=== PATIENT | female | born 1935 | race Caucasian/White ===

== ENCOUNTER → 2016-06-27 | Day surgery (SDC) | payer OTHER ==
[~2016-06-27] VITALS: Ht 154.9 cm; Wt 88.9 kg
[~2016-06-27] MED LIST: AMARYL1 MG PO; ANTIBIOTIC; ATIVAN1 MG PO; BACTRIM DS 8001 TA1 PO; CARAFATE1 G1 PO; CIPRO500 MG PO; FISH OIL; FLONASE ALLERG9.9 ML NAS; LEVAQUIN750 M1 PO; LORAZEPAM1 MG PO; MACROBID100 M1 PO; MEDROL DOSEPAK4 MG PO; METFORMIN500 MG PO; MUCINEX ER600 MG PO; OMEPRAZOLE DR20 M1 PO; PAXIL PO; PAXIL20 MG PO; PAXIL30 M2 PO; PRILOSEC20 M2 PO; PROBIOTIC DIGE1 EACH PO; PROBIOTICS PO; PYRIDIUM200 MG PO; RANITIDINE 7575 MG; RESTORIL30 M1 PO; ROBITUSSIN AC 110 ML PO; TEMAZEPAM30 MG PO; TRADJENTA5 M1 PO; VIBRAMYCIN100 MG PO; VITAMIN D5000 I3 PO; ZOFRAN ODT4 MG SL; [UNRECOGNIZED DRUG - OTHER]
--- NOTE | ~2016-06-27 | O ---
[place], [place] OPERATIVE NOTE NAME: DYLAN TOUSSAINT UNIT #: [id number] ROOM: DOCTOR: ANGELICA ZAMORA MD BIRTHDATE: [birth year] DOS: 06/27/2016 An 80-year-old patient who was presented with chief complaint of urgency and sensation of loss of control of stool and some blood in stool. ALLERGIES: TORADOL and TETANUS SHOT. FAMILY HISTORY: Noncontributory. PAST SURGICAL HISTORY: Segmental colon resection, cholecystectomy, cardiac stents. PAST MEDICAL HISTORY: Diabetes mellitus, gastritis, anxiety and suspected cirrhosis. SOCIAL HISTORY: Nonsmoker, nonalcohol consumer. PROCEDURE: Today's procedure part of investigation is colonoscopy plus polypectomy x2 from sigmoid colon plus biopsy of rectal mass. PREMEDICATION: Versed and Diprivan. SCOPE: Olympus folding colonoscope 10L video. REPORT: After putting the patient in left lateral position and application of lubricant to rectal pouch and digital examination, scope was introduced. Thereafter, under direct visualization, I advanced through the length of colon without difficulty. Evidence of segmental colon resection was identified; however, scope was withdrawn back 2 sigmoid colon polypoid lesion sessile in character with piecemeal polypectomy was removed, and there is another large infiltrated rectal mass which appears to be an overgrown tubulovillous adenoma to this polyp with deep infiltration and greater than 3 cm in its diameters was noticed. Multiple biopsies after photographic series obtained. This was located 5 cm above dentate line. The patient extubated, tolerated procedure well. IMPRESSION: Large rectal mass at 5 cm away from dentate line, status post biopsy. This requires to be surgically addressed after the pathology is available. Sessile polypoid lesion in sigmoid colon, status post 2 piecemeal polypectomy. PLAN AND DISCUSSION: Awaiting biopsy of rectal pouch polypoid mass inevitably this requires surgical management. I have to talk to the patient after the data and pathology is available and make appropriate arrangements. Etiology of rectal incontinence and blood in stool is all explained based on above findings. [place], [place] OPERATIVE NOTE NAME: DYLAN TOUSSAINT UNIT #: [id number] ROOM: DOCTOR: ANGELICA ZAMORA MD BIRTHDATE: [birth year] ANGELICA ZAMORA MD CM:MURPHYORD:OPERATIVE NOTE [id number] ANGELICA ZAMORA MD 06/27/16916 interface
[2016-06-27 07:33] VITALS: BP 184/80
[2016-06-27 08:45] VITALS: BP 161/58
[2016-06-27 09:00] VITALS: BP 156/57
[2016-06-27 09:15] VITALS: BP 150/66
== END | disposition home or self-care (01) ==
LOC: SDC 06-21 08:45
DX: D12.5 Benign neoplasm of sigmoid colon (principal); D37.5 Neoplasm of uncertain behavior of rectum; E11.9 Type 2 diabetes mellitus without complications; F41.9 Anxiety disorder, unspecified; I10 Essential (primary) hypertension; K21.9 Gastro-esophageal reflux disease without esophagitis; E78.00 Pure hypercholesterolemia, unspecified; Z90.49 Acquired absence of other specified parts of digestive tract; Z95.818 Presence of other cardiac implants and grafts; Z82.3 Family history of stroke; Z82.49 Family history of ischemic heart disease and other diseases of the circulatory system

== ENCOUNTER 2016-07-05 20:21 | Emergency (ER) | payer OTHER ==
[~2016-07-05] VITALS: Ht 152.4 cm; Wt 85.7 kg
[2016-07-05 20:27] VITALS: BP 166/58
[2016-07-05] MEDS ORDERED: DIFLUCAN150 MG PO (20:45)
[2016-07-05] MEDS ORDERED: BACTRIM DS 8001 TA1 PO (20:45)
[2016-07-05] MEDS ORDERED: LOTRISONE 0.05%15 GM T (20:45)
[2016-07-05] MEDS ORDERED: CLINDAMYCIN HC300 MG PO (20:45)
== END 2016-07-05 20:44 | disposition home or self-care (01) ==
LOC: ED 20:21
DX: B37.2 Candidiasis of skin and nail (principal); L03.90 Cellulitis, unspecified; Z95.5 Presence of coronary angioplasty implant and graft; Z90.49 Acquired absence of other specified parts of digestive tract; Z88.6 Allergy status to analgesic agent; Z88.7 Allergy status to serum and vaccine; I25.10 Atherosclerotic heart disease of native coronary artery without angina pectoris; F41.9 Anxiety disorder, unspecified; K21.9 Gastro-esophageal reflux disease without esophagitis; E11.69 Type 2 diabetes mellitus with other specified complication

== ENCOUNTER → 2016-09-07 | Outpatient (CLI) | payer OTHER ==
[~2016-09-07] MED LIST changes: +CLINDAMYCIN HC300 MG PO; +DIFLUCAN150 MG PO; +LOTRISONE 0.05%15 GM T
[2016-09-07 17:31] LABS: POTASSIUM 4.2 mmol/L (3.5-5.1)
== END | disposition home or self-care (01) ==
LOC: LAB 16:34
PROVIDERS: Family Medicine
DX: R79.9 Abnormal finding of blood chemistry, unspecified (principal)

== ENCOUNTER 2016-12-04 01:57 | Inpatient (IN) | payer OTHER ==
[2016-12-04] VITALS (11 sets, daily range): BP systolic 90–161; BP diastolic 44–116
[~2016-12-04] VITALS: Ht 152.4 cm; Wt 92.2 kg
--- NOTE | 2016-12-04 02:42 | NUR ---
PT IN XRAY
--- NOTE | 2016-12-04 02:50 | NUR ---
PT BACK FROM XRAY
[2016-12-04 02:54] LABS: BASO % 0.3 % (0.0-1.0); EOS # 0.2 10*3/uL (0.0-0.4); EOS % 1.4 % (1.0-4.0); HEMATOCRIT 47.6 % (37.0-47.0); HEMOGLOBIN 15.9 g/dl (12.0-16.0); LYMPH # 3.6 10*3/uL (1.3-4.4); LYMPH % 31.2 % (27.0-41.0); MEAN CORPUSCULAR HGB 30.4 pg (27.0-31.0); MEAN CORPUSCULAR HGB CONC 33.4 g/dl (33.0-37.0); MEAN PLATELET VOLUME 10.5 fl (9.6-12.3); MONO # 0.5 10*3/uL (0.1-1.0); MONO % 4.6 % (3.0-9.0); NEUT # 7.1 10*3/uL (2.3-7.9); NEUT % 62.2 % (47.0-73.0); PLATELET COUNT AUTOMATED 256 10*3/uL (130-400); RED BLOOD COUNT 5.23 10*6/uL (4.10-5.10); RED CELL DISTRI WIDTH 13.2 % (0-14.5); WHITE BLOOD COUNT 11.5 10*3/uL (4.8-10.8)
--- NOTE | 2016-12-04 03:06 | NUR ---
WHILE AT PT BEDSIDE WITH DR GARCIA, LAB REPORTED CRITICAL LACTIC ACID OF 4.4, DR GARCIA NOTIFIED IMMEDIATLY
[2016-12-04 03:10] LABS: ALBUMIN 3.5 gm/dl (3.1-4.5); CREATININE 1.44 mg/dL (0.55-1.02); MAGNESIUM 1.5 mg/dL (1.5-2.1); POTASSIUM 3.9 mmol/L (3.5-5.1); TOTAL PROTEIN 8.9 gm/dL (6.4-8.2)
--- NOTE | 2016-12-04 03:14 | NUR ---
LUNGS CLEAR AND DIMINISHED IN LOWER LOBES, PULSE OX FROM 92% ROOM AIR TO 94% ON 2LPM VIA NC
[2016-12-04 04:59] LABS: BILIRUBIN NEGATIVE (NEGATIVE); BLOOD TRACE-LYSED (NEGATIVE); CLARITY CLEAR (CLEAR); COLOR YELLOW (YELLOW); GLUCOSE 3+ (NEGATIVE); KETONE NEGATIVE (NEGATIVE); LEUKO ESTERASE NEGATIVE (NEGATIVE); NITRITE NEGATIVE (NEGATIVE); SPECIFIC GRAVITY <= 1.005 (1.005-1.030); UROBILINOGEN 0.2 E.U./dl (0.2-1.0)
[2016-12-04 05:06] LABS: WBC 0-2 wbc/hpf (0-5)
--- NOTE | 2016-12-04 05:30 | NUR ---
REPORT RECEIVED FROM WEB PRESS OPERATOR HELPER OFFSETFELICIA CHANG AT THIS TIME.
--- NOTE | 2016-12-04 05:48 | NUR ---
A 80, admitted to 5E, under the services of LAURA Broussard DO with a diagnosis of INFECTIOUS DIARRHEA, ACUTE HYPERGLYCEMIA, SEPSIS. Chief complaint is VOMITING. Patient arrived via stretcher from ER. Monitor applied. Initial assessment completed. Vital signs taken and recorded. LAURA BROUSSARD DO notified of admission to the unit. Orders received. See assessment for past medical history, medications and allergies. Patient and/or family oriented to unit. [facility] visitation policy reviewed. Clothing/patient valuable form completed. JO MIR
--- NOTE | 2016-12-04 08:23 | NUR ---
DR ELIZABETH ROUNDED AND ORDERS RECIEVED.
--- NOTE | 2016-12-04 08:35 | NUR ---
NOTIFIED DR MACHADO OF CRITICAL LACTIC ACID OF 3.2.
--- NOTE | 2016-12-04 09:00 | NUR ---
Camera Engineer in to talk to patient. Patient states lives at home with daughter. There are few steps in the home. Physician: marylou dee Pharmacy: [facility] health services: had [facility] Patient's level of ADLs: MINIMAL ASSIST Patient has working utilities: all working DME: home oxygen, portable tank and nebulizer from [facility] Follow-up physician's appointment after d/c: will be made by hospitalist nurse director upon discharge Does patient want to access PORTAL?: no Discharge plan discussed with patient, patient lives at home with her daughter, she states she gets around fine most of the time, she has home oxygen and a portable tank, nebulizer, patient had [facility], but they have discontinued their services, discussed with her a discharge plan and she stated she would be returning home, discussed with her VNA and she refused any at this time, case management will follow. PRIYA CHEN
[2016-12-04] MEDS ORDERED: GLIMEPIRIDE4 M1 PO (12:24)
--- NOTE | 2016-12-04 23:28 | NUR ---
MEDICATED WITH PRN RESTORIL PER ORDER AND REQUEST.
[2016-12-05] VITALS: BP 143/39
[2016-12-05 06:55] LABS: BASO # 0.1 10*3/uL (0.0-0.1); BASO % 0.6 % (0.0-1.0); EOS # 0.5 10*3/uL (0.0-0.4); HEMATOCRIT 43.1 % (37.0-47.0); LYMPH # 3.7 10*3/uL (1.3-4.4); LYMPH % 43.2 % (27.0-41.0); MEAN CORPUSCULAR HGB 31.2 pg (27.0-31.0); MEAN CORPUSCULAR HGB CONC 32.5 g/dl (33.0-37.0); MEAN PLATELET VOLUME 10.9 fl (9.6-12.3); MONO # 0.4 10*3/uL (0.1-1.0); MONO % 5.2 % (3.0-9.0); NEUT # 3.8 10*3/uL (2.3-7.9); NEUT % 44.8 % (47.0-73.0); PLATELET COUNT AUTOMATED 216 10*3/uL (130-400); RED BLOOD COUNT 4.49 10*6/uL (4.10-5.10); RED CELL DISTRI WIDTH 13.5 % (0-14.5); WHITE BLOOD COUNT 8.5 10*3/uL (4.8-10.8)
[2016-12-05 07:07] LABS: ALBUMIN 3.2 gm/dl (3.1-4.5); ALKALINE PHOSPHATASE 72 U/L (45-117); BUN 9 mg/dl (7-24); CHLORIDE 107 mmol/L (98-107); CHOLESTEROL 235 mg/dL (<200); CREATININE 0.93 mg/dL (0.55-1.02); HDL CHOLESTEROL 39 mg/dl (40-60); LDL CHOLESTEROL 150 mg/dL (9-159); MAGNESIUM 1.6 mg/dL (1.5-2.1); PHOSPHOROUS 2.6 mg/dL (2.5-4.9); POTASSIUM 3.8 mmol/L (3.5-5.1); SGOT/AST 27 IU/L (3-35); SGPT/ALT 26 U/L (12-78); SODIUM 139 mmol/L (136-145); TOTAL PROTEIN 7.5 gm/dL (6.4-8.2); TRIGLYCERIDES 229 mg/dl (<150); VLDL CHOLESTEROL 46 mg/dL (6-40)
[2016-12-05 07:11] LABS: ACT PARTIAL THROMBO TIME 26.6 SECONDS (20.8-31.5)
[2016-12-05 07:13] LABS: VITAMIN D, 25-HYDROXY 34.1 ng/mL (30-100)
[2016-12-05 08:00] VITALS: BP 146/80
--- NOTE | 2016-12-05 08:16 | NUR ---
PT STATES THAT HER N/V/D HAS SLOWED SINCE ADMISSION
--- NOTE | 2016-12-05 08:16 | NUR ---
PT RESTING IN BED, NO DISTRESS NOTED. NO VOICED C/O, WILL MONITOR
--- NOTE | 2016-12-05 09:37 | NUR ---
case management visits with patient, again discussed with her VNA, she stated she had this service prior and didn't want them again, her daughter lives with her and would help with whatever she needs
[2016-12-05 12:00] VITALS: BP 132/78
[2016-12-05 16:00] VITALS: BP 129/59
--- NOTE | 2016-12-05 17:13 | NUR ---
PT RESTING IN BED, NO DISTRESS NOTED. NO VOICED C/O. FAMILY AT BEDSIDE
[2016-12-05 20:00] VITALS: BP 153/50
[2016-12-06] VITALS: BP 162/74
[2016-12-06 06:20] LABS: BASO % 0.5 % (0.0-1.0); EOS # 0.5 10*3/uL (0.0-0.4); EOS % 5.5 % (1.0-4.0); HEMATOCRIT 42.4 % (37.0-47.0); HEMOGLOBIN 13.6 g/dl (12.0-16.0); LYMPH # 3.5 10*3/uL (1.3-4.4); LYMPH % 40.8 % (27.0-41.0); MEAN CELL VOLUME 93.6 fl (81.0-99.0); MEAN CORPUSCULAR HGB CONC 32.1 g/dl (33.0-37.0); MEAN PLATELET VOLUME 10.4 fl (9.6-12.3); MONO # 0.5 10*3/uL (0.1-1.0); MONO % 5.4 % (3.0-9.0); NEUT # 4.1 10*3/uL (2.3-7.9); NEUT % 47.6 % (47.0-73.0); PLATELET COUNT AUTOMATED 196 10*3/uL (130-400); RED BLOOD COUNT 4.53 10*6/uL (4.10-5.10); RED CELL DISTRI WIDTH 13.3 % (0-14.5); WHITE BLOOD COUNT 8.5 10*3/uL (4.8-10.8)
[2016-12-06 06:54] LABS: BUN 8 mg/dl (7-24); CHLORIDE 106 mmol/L (98-107); CREATININE 0.93 mg/dL (0.55-1.02); POTASSIUM 3.8 mmol/L (3.5-5.1); SODIUM 140 mmol/L (136-145)
[2016-12-06 08:00] VITALS: BP 158/51
--- NOTE | 2016-12-06 09:00 | NUR ---
case management visits with patient, patient states she will be going home when able and denies any home needs, patient has refused VNA
[2016-12-06] MEDS ORDERED: SIMVASTATIN20 MG PO (12:32)
--- NOTE | 2016-12-06 14:10 | NUR ---
Nutritional Support Services Note: Pt is eating 100% of all meals. Regular diet as ordered. BS high at 211. Meds include insulin, dx of acute hyperglcemia. Pt wants to remain on a regular diet. States she will not order any sweets. Ht.5' Wt.203#. IBW 90-110. Lives with daughter, no problems noted. Encouraged better compliance to diet and avoidance of fat sec. to [facility] cholesterol and triglyceride level. Will follow as needed. Swati Shook
--- NOTE | 2016-12-06 14:25 | NUR ---
PT REQUESTED AND GIVEN ZOFRAN FOR C/O NAUSEA. WILL MONITOR
--- NOTE | 2016-12-06 14:57 | NUR ---
Discharge instructions reviewed with patient/family. Patient receptive and verbalizes understanding. Follow-up care arranged. Written instructions given to patient/family. KATHARINE MEJIA
--- NOTE | 2016-12-06 14:57 | NUR ---
YOLY EFFECTIVE, WILL MONITOR
== END 2016-12-06 14:57 | disposition home or self-care (01) | DRG 871 ==
LOC: ED 01:57 → EDHOLD 05:02 → 5E 05:02
PROVIDERS: Emergency Medicine Emergency Medical Services; Hospitalist; Internal Medicine; ADMIT Internal Medicine
DX: A41.9 Sepsis, unspecified organism (principal); N17.0 Acute kidney failure with tubular necrosis; E87.2 Acidosis; E87.1 Hypo-osmolality and hyponatremia; J98.11 Atelectasis; K52.9 Noninfective gastroenteritis and colitis, unspecified; E11.65 Type 2 diabetes mellitus with hyperglycemia; E53.8 Deficiency of other specified B group vitamins; I25.10 Atherosclerotic heart disease of native coronary artery without angina pectoris; R65.20 Severe sepsis without septic shock; K21.9 Gastro-esophageal reflux disease without esophagitis; F41.1 Generalized anxiety disorder; E66.9 Obesity, unspecified; G47.00 Insomnia, unspecified; E55.9 Vitamin D deficiency, unspecified; E78.2 Mixed hyperlipidemia; Z79.4 Long term (current) use of insulin; Z95.5 Presence of coronary angioplasty implant and graft; Z90.49 Acquired absence of other specified parts of digestive tract; Z88.8 Allergy status to other drugs, medicaments and biological substances; Z88.7 Allergy status to serum and vaccine; Z79.899 Other long term (current) drug therapy; Z82.49 Family history of ischemic heart disease and other diseases of the circulatory system; Z82.3 Family history of stroke; Z68.39 Body mass index [BMI] 39.0-39.9, adult

== ENCOUNTER → 2016-12-21 | Outpatient (CLI) | payer OTHER ==
[~2016-12-21] MED LIST changes: +GLIMEPIRIDE4 M1 PO; +SIMVASTATIN20 MG PO
[2016-12-21 16:23] LABS: BASO # 0.1 10*3/uL (0.0-0.1); BASO % 0.6 % (0.0-1.0); EOS # 0.4 10*3/uL (0.0-0.4); EOS % 4.2 % (1.0-4.0); HEMATOCRIT 44.1 % (37.0-47.0); HEMOGLOBIN 14.6 g/dl (12.0-16.0); LYMPH # 3.5 10*3/uL (1.3-4.4); LYMPH % 36.4 % (27.0-41.0); MEAN CELL VOLUME 92.5 fl (81.0-99.0); MEAN CORPUSCULAR HGB 30.6 pg (27.0-31.0); MEAN CORPUSCULAR HGB CONC 33.1 g/dl (33.0-37.0); MEAN PLATELET VOLUME 10.3 fl (9.6-12.3); MONO # 0.4 10*3/uL (0.1-1.0); MONO % 4.4 % (3.0-9.0); NEUT # 5.2 10*3/uL (2.3-7.9); NEUT % 54.2 % (47.0-73.0); PLATELET COUNT AUTOMATED 228 10*3/uL (130-400); RED BLOOD COUNT 4.77 10*6/uL (4.10-5.10); RED CELL DISTRI WIDTH 13.5 % (0-14.5); WHITE BLOOD COUNT 9.5 10*3/uL (4.8-10.8)
[2016-12-21 16:38] LABS: ALBUMIN 3.4 gm/dl (3.1-4.5); ALKALINE PHOSPHATASE 80 U/L (45-117); BILIRUBIN, DIRECT < 0.1 mg/dL (0.0-0.2); BUN 10 mg/dl (7-24); CHLORIDE 101 mmol/L (98-107); CREATININE 0.97 mg/dL (0.55-1.02); SGOT/AST 63 IU/L (3-35); SGPT/ALT 40 U/L (12-78); SODIUM 136 mmol/L (136-145); TOTAL PROTEIN 7.8 gm/dL (6.4-8.2)
== END | disposition home or self-care (01) ==
LOC: LAB 16:03
PROVIDERS: Family Medicine
DX: E11.9 Type 2 diabetes mellitus without complications (principal); R79.89 Other specified abnormal findings of blood chemistry; N28.9 Disorder of kidney and ureter, unspecified

== ENCOUNTER 2017-01-26 23:50 | Emergency (ER) | payer OTHER ==
[~2017-01-26] VITALS: Ht 149.8 cm; Wt 88.9 kg
[2017-01-26 23:59] VITALS: BP 151/54
[2017-01-27 00:27] LABS: BASO % 0.4 % (0.0-1.0); EOS # 0.4 10*3/uL (0.0-0.4); EOS % 3.7 % (1.0-4.0); HEMATOCRIT 42.1 % (37.0-47.0); HEMOGLOBIN 14.1 g/dl (12.0-16.0); LYMPH # 3.6 10*3/uL (1.3-4.4); LYMPH % 38.8 % (27.0-41.0); MEAN CELL VOLUME 90.9 fl (81.0-99.0); MEAN CORPUSCULAR HGB 30.5 pg (27.0-31.0); MEAN CORPUSCULAR HGB CONC 33.5 g/dl (33.0-37.0); MEAN PLATELET VOLUME 9.8 fl (9.6-12.3); MONO # 0.5 10*3/uL (0.1-1.0); MONO % 5.2 % (3.0-9.0); NEUT # 4.9 10*3/uL (2.3-7.9); NEUT % 51.8 % (47.0-73.0); PLATELET COUNT AUTOMATED 247 10*3/uL (130-400); RED BLOOD COUNT 4.63 10*6/uL (4.10-5.10); RED CELL DISTRI WIDTH 13.6 % (0-14.5); WHITE BLOOD COUNT 9.4 10*3/uL (4.8-10.8)
[2017-01-27 00:42] LABS: ALBUMIN 3.3 gm/dl (3.1-4.5); ALKALINE PHOSPHATASE 86 U/L (45-117); BUN 10 mg/dl (7-24); CHLORIDE 101 mmol/L (98-107); CREATININE 0.98 mg/dL (0.55-1.02); POTASSIUM 3.7 mmol/L (3.5-5.1); SGOT/AST 39 IU/L (3-35); SGPT/ALT 34 U/L (12-78); SODIUM 136 mmol/L (136-145); TOTAL PROTEIN 7.9 gm/dL (6.4-8.2)
== END 2017-01-27 01:20 | disposition home or self-care (01) ==
LOC: ED 23:50
PROVIDERS: Physician Assistant
DX: L30.9 Dermatitis, unspecified (principal); Z88.8 Allergy status to other drugs, medicaments and biological substances; Z79.899 Other long term (current) drug therapy; Z90.49 Acquired absence of other specified parts of digestive tract

== ENCOUNTER 2017-02-04 17:53 | Emergency (ER) | payer OTHER ==
[~2017-02-04] VITALS: Ht 149.8 cm; Wt 86.2 kg
[2017-02-04 18:03] VITALS: BP 150/90
[2017-02-04 18:33] LABS: BASO # 0.1 10*3/uL (0.0-0.1); BASO % 0.5 % (0.0-1.0); EOS # 0.3 10*3/uL (0.0-0.4); HEMATOCRIT 42.3 % (37.0-47.0); HEMOGLOBIN 14.2 g/dl (12.0-16.0); LYMPH # 4.8 10*3/uL (1.3-4.4); LYMPH % 45.7 % (27.0-41.0); MEAN CELL VOLUME 90.8 fl (81.0-99.0); MEAN CORPUSCULAR HGB 30.5 pg (27.0-31.0); MEAN CORPUSCULAR HGB CONC 33.6 g/dl (33.0-37.0); MEAN PLATELET VOLUME 9.9 fl (9.6-12.3); MONO # 0.5 10*3/uL (0.1-1.0); NEUT # 4.8 10*3/uL (2.3-7.9); NEUT % 45.6 % (47.0-73.0); PLATELET COUNT AUTOMATED 223 10*3/uL (130-400); RED BLOOD COUNT 4.66 10*6/uL (4.10-5.10); RED CELL DISTRI WIDTH 13.6 % (0-14.5); WHITE BLOOD COUNT 10.5 10*3/uL (4.8-10.8)
[2017-02-04 18:51] LABS: ALBUMIN 3.3 gm/dl (3.1-4.5); ALKALINE PHOSPHATASE 81 U/L (45-117); BUN 14 mg/dl (7-24); CHLORIDE 101 mmol/L (98-107); CREATININE 0.87 mg/dL (0.55-1.02); POTASSIUM 4.2 mmol/L (3.5-5.1); SGOT/AST 17 IU/L (3-35); SGPT/ALT 24 U/L (12-78); SODIUM 136 mmol/L (136-145)
[2017-02-04 18:57] LABS: ACT PARTIAL THROMBO TIME 27.3 SECONDS (20.8-31.5)
[2017-02-04] MEDS ORDERED: DELTASONE20 M1 PO (19:17)
== END 2017-02-04 19:26 | disposition home or self-care (01) ==
LOC: ED 17:53
PROVIDERS: Emergency Medicine
DX: D69.2 Other nonthrombocytopenic purpura (principal); I77.6 Arteritis, unspecified; Z90.49 Acquired absence of other specified parts of digestive tract; Z95.5 Presence of coronary angioplasty implant and graft; Z98.890 Other specified postprocedural states; Z79.899 Other long term (current) drug therapy; Z88.6 Allergy status to analgesic agent; Z88.7 Allergy status to serum and vaccine

== ENCOUNTER 2017-03-29 15:34 | Inpatient (IN) | payer OTHER ==
[~2017-03-29] VITALS: Ht 152.4 cm; Wt 91.2 kg
[~2017-03-29 15:34] MED LIST changes: +DELTASONE20 M1 PO
[2017-03-29 15:38] VITALS: BP 178/150
[2017-03-29 15:50] VITALS: BP 126/62
[2017-03-29 16:04] LABS: BASO # 0.1 10*3/uL (0.0-0.1); BASO % 0.4 % (0.0-1.0); EOS # 0.3 10*3/uL (0.0-0.4); EOS % 2.5 % (1.0-4.0); HEMOGLOBIN 14.4 g/dl (12.0-16.0); LYMPH # 3.4 10*3/uL (1.3-4.4); LYMPH % 30.4 % (27.0-41.0); MEAN CELL VOLUME 91.9 fl (81.0-99.0); MEAN CORPUSCULAR HGB 30.8 pg (27.0-31.0); MEAN CORPUSCULAR HGB CONC 33.5 g/dl (33.0-37.0); MEAN PLATELET VOLUME 10.2 fl (9.6-12.3); MONO # 0.5 10*3/uL (0.1-1.0); MONO % 4.1 % (3.0-9.0); NEUT % 62.3 % (47.0-73.0); PLATELET COUNT AUTOMATED 231 10*3/uL (130-400); RED BLOOD COUNT 4.68 10*6/uL (4.10-5.10); RED CELL DISTRI WIDTH 13.2 % (0-14.5); WHITE BLOOD COUNT 11.2 10*3/uL (4.8-10.8)
[2017-03-29 16:19] LABS: ALBUMIN 3.1 gm/dl (3.1-4.5); CREATININE 1.26 mg/dL (0.55-1.02); POTASSIUM 3.9 mmol/L (3.5-5.1); TOTAL PROTEIN 7.6 gm/dL (6.4-8.2)
[2017-03-29 16:23] LABS: BILIRUBIN NEGATIVE (NEGATIVE); BLOOD 3+ (NEGATIVE); CLARITY CLOUDY (CLEAR); COLOR YELLOW (YELLOW); GLUCOSE 3+ (NEGATIVE); KETONE TRACE (NEGATIVE); LEUKO ESTERASE 2+ (NEGATIVE); NITRITE POSITIVE (NEGATIVE); SPECIFIC GRAVITY 1.015 (1.005-1.030)
[2017-03-29 16:34] LABS: BACTERIA 1+; EPITHELIAL CELLS 21-30
[2017-03-29 16:35] LABS: RBC 51-100 rbc/hpf (0-2); WBC 51-100 wbc/hpf (0-5)
[2017-03-29 17:42] VITALS: BP 151/67
[2017-03-29] MEDS ORDERED: ASPIRIN CHEWABL81 MG PO (18:21)
[2017-03-29] MEDS ORDERED: TRAD5TAB1 PO (19:50)
[2017-03-29] MEDS ORDERED: OMEPRAZOLE MAGN20 MG PO (19:52)
[2017-03-29 20:00] VITALS: BP 133/52
[2017-03-30] VITALS: BP 131/80
[2017-03-30 07:59] LABS: BASO # 0.1 10*3/uL (0.0-0.1); BASO % 0.6 % (0.0-1.0); EOS # 0.4 10*3/uL (0.0-0.4); EOS % 5.2 % (1.0-4.0); HEMATOCRIT 39.2 % (37.0-47.0); HEMOGLOBIN 12.7 g/dl (12.0-16.0); LYMPH # 3.2 10*3/uL (1.3-4.4); LYMPH % 41.1 % (27.0-41.0); MEAN CELL VOLUME 94.2 fl (81.0-99.0); MEAN CORPUSCULAR HGB 30.5 pg (27.0-31.0); MEAN CORPUSCULAR HGB CONC 32.4 g/dl (33.0-37.0); MEAN PLATELET VOLUME 10.5 fl (9.6-12.3); MONO # 0.5 10*3/uL (0.1-1.0); NEUT # 3.5 10*3/uL (2.3-7.9); NEUT % 45.8 % (47.0-73.0); PLATELET COUNT AUTOMATED 192 10*3/uL (130-400); RED BLOOD COUNT 4.16 10*6/uL (4.10-5.10); RED CELL DISTRI WIDTH 13.2 % (0-14.5); WHITE BLOOD COUNT 7.7 10*3/uL (4.8-10.8)
[2017-03-30 08:00] VITALS: BP 126/42
[2017-03-30 08:10] LABS: ACT PARTIAL THROMBO TIME 28.2 SECONDS (20.8-31.5)
[2017-03-30 08:13] LABS: ALBUMIN 2.6 gm/dl (3.1-4.5); BUN 16 mg/dl (7-24); CHLORIDE 101 mmol/L (98-107); CHOLESTEROL 222 mg/dL (<200); POTASSIUM 3.7 mmol/L (3.5-5.1); SGPT/ALT 18 U/L (12-78); SODIUM 139 mmol/L (136-145); TRIGLYCERIDES 293 mg/dl (<150); VLDL CHOLESTEROL 59 mg/dL (6-40)
[2017-03-30 08:21] LABS: ALKALINE PHOSPHATASE 75 U/L (45-117); CREATININE 0.84 mg/dL (0.55-1.02); HDL CHOLESTEROL 33 mg/dl (40-60); LDL CHOLESTEROL 130 mg/dL (9-159); PHOSPHOROUS 3.7 mg/dL (2.5-4.9); SGOT/AST 21 IU/L (3-35); TOTAL PROTEIN 6.4 gm/dL (6.4-8.2)
[2017-03-30 09:00] LABS: VITAMIN D, 25-HYDROXY 20.4 ng/mL (30-100)
[2017-03-30 12:00] VITALS: BP 136/61
[2017-03-30 16:00] VITALS: BP 124/54
[2017-03-30 20:00] VITALS: BP 144/91
[2017-03-31] VITALS: BP 135/65
[2017-03-31 08:00] VITALS: BP 136/66
[2017-03-31 08:02] LABS: BUN 18 mg/dl (7-24); CHLORIDE 101 mmol/L (98-107); CREATININE 0.84 mg/dL (0.55-1.02); POTASSIUM 4.2 mmol/L (3.5-5.1); SODIUM 139 mmol/L (136-145)
[2017-03-31] MEDS ORDERED: CIPRO500 MG PO (11:45)
[2017-03-31 12:00] VITALS: BP 133/59
== END 2017-03-31 13:00 | disposition home or self-care (01) | DRG 689 ==
LOC: ED 15:34 → EDHOLD 17:02 → 4E 17:02
PROVIDERS: Internal Medicine; Internal Medicine Hospice and Palliative Medicine; Nurse Practitioner Family
DX: N30.01 Acute cystitis with hematuria (principal); N17.0 Acute kidney failure with tubular necrosis; E87.2 Acidosis; E11.65 Type 2 diabetes mellitus with hyperglycemia; D72.829 Elevated white blood cell count, unspecified; E78.2 Mixed hyperlipidemia; G47.00 Insomnia, unspecified; G51.0 Bell's palsy; K21.9 Gastro-esophageal reflux disease without esophagitis; F41.1 Generalized anxiety disorder; I25.10 Atherosclerotic heart disease of native coronary artery without angina pectoris; Z79.899 Other long term (current) drug therapy; Z88.7 Allergy status to serum and vaccine; Z88.8 Allergy status to other drugs, medicaments and biological substances; Z95.5 Presence of coronary angioplasty implant and graft; Z90.49 Acquired absence of other specified parts of digestive tract

== ENCOUNTER → 2017-04-22 | Outpatient (CLI) | payer OTHER ==
[~2017-04-22] MED LIST changes: +ASPIRIN CHEWABL81 MG PO; +OMEPRAZOLE MAGN20 MG PO; +TRAD5TAB1 PO
[2017-04-22 14:38] LABS: BASO # 0.1 10*3/uL (0.0-0.1); BASO % 0.6 % (0.0-1.0); EOS # 0.3 10*3/uL (0.0-0.4); EOS % 3.8 % (1.0-4.0); HEMATOCRIT 44.6 % (37.0-47.0); HEMOGLOBIN 15.2 g/dl (12.0-16.0); LYMPH # 3.6 10*3/uL (1.3-4.4); LYMPH % 39.7 % (27.0-41.0); MEAN CELL VOLUME 90.3 fl (81.0-99.0); MEAN CORPUSCULAR HGB 30.8 pg (27.0-31.0); MEAN CORPUSCULAR HGB CONC 34.1 g/dl (33.0-37.0); MEAN PLATELET VOLUME 9.9 fl (9.6-12.3); MONO # 0.4 10*3/uL (0.1-1.0); MONO % 4.8 % (3.0-9.0); NEUT # 4.6 10*3/uL (2.3-7.9); PLATELET COUNT AUTOMATED 208 10*3/uL (130-400); RED BLOOD COUNT 4.94 10*6/uL (4.10-5.10); RED CELL DISTRI WIDTH 13.2 % (0-14.5); WHITE BLOOD COUNT 8.9 10*3/uL (4.8-10.8)
[2017-04-22 14:58] LABS: ALBUMIN 3.4 gm/dl (3.1-4.5); ALKALINE PHOSPHATASE 86 U/L (45-117); BILIRUBIN, DIRECT < 0.1 mg/dL (0.0-0.2); BUN 11 mg/dl (7-24); CHLORIDE 100 mmol/L (98-107); CHOLESTEROL 279 mg/dL (<200); CREATININE 0.93 mg/dL (0.55-1.02); HDL CHOLESTEROL 39 mg/dl (40-60); LDL CHOLESTEROL 180 mg/dL (9-159); SGOT/AST 20 IU/L (3-35); SGPT/ALT 28 U/L (12-78); SODIUM 137 mmol/L (136-145); THYROXINE (T4) TOTAL 7.7 ug/dl (4.8-13.9); TOTAL PROTEIN 7.8 gm/dL (6.4-8.2); TRIGLYCERIDES 300 mg/dl (<150); VLDL CHOLESTEROL 60 mg/dL (6-40)
== END | disposition home or self-care (01) ==
LOC: LAB 14:10
PROVIDERS: Family Medicine
DX: I10 Essential (primary) hypertension (principal); E55.9 Vitamin D deficiency, unspecified; E11.9 Type 2 diabetes mellitus without complications

== ENCOUNTER 2017-08-05 16:04 | Inpatient (IN) | payer OTHER ==
[~2017-08-05] VITALS: Ht 152.4 cm; Wt 87.7 kg
--- NOTE | ~2017-08-05 | PR ---
[place], [place] PROGRESS NOTE NAME: DYLAN TOUSSAINT UNIT #: [id number] ROOM: 424 DOCTOR: ULISSES DOMINGUEZ MD BIRTHDATE: [birth year] DOS: 08/07/2017 PULMONARY PROGRESS NOTE SUBJECTIVE: She has been noted comfortable at this time, resting on the bed without any acute distress. Coughing and shortness of breath has been noted decreased. Denies symptoms of hemoptysis or any chest pain. OBJECTIVE: VITAL SIGNS: For the patient which were recorded this morning, normal temperature, respiratory rate 20, heart rate 60, blood pressure 122/90. Pulse oxygen saturation of the patient recorded as 92% at rest. HEENT: Chronic obesity. Head was atraumatic. NECK: Supple. CARDIOVASCULAR: S1, S2 audible. LUNGS: The patient was noted with speo-lu-[id number] decreased breath sounds in the lungs bilaterally. There was no wheezing or crackle. ABDOMEN: Soft, nontender, and obese. EXTREMITIES: Without any acute edema. LABORATORY DATA: CBC this morning, normal CBC was noted. Blood culture, no bacterial growth. IMPRESSION: The patient has been currently noted with findings of: 1. Acute respiratory failure with acute viral bronchitis as well. Previous history of pneumonia. 2. Uncontrolled diabetes mellitus. 3. Lactic acidosis. PLAN OF MANAGEMENT: Continue current medical plan of management. She responded to treatment with gradual improvement and resolution of acute hypoxic respiratory failure. Continuation of the other previous plan of treatment. Continue to monitor the blood culture results as ordered. Usual care. [place], [place] PROGRESS NOTE NAME: DYLAN TOUSSAINT UNIT #: [id number] ROOM: 424 DOCTOR: ULISSES DOMINGUEZ MD BIRTHDATE: [birth year] ULISSES ALLISON MD CM:PNTRANS [id number] ULISSES LEON MD 08/07/17 1611 interface
--- NOTE | ~2017-08-05 | CON ---
[place], [place] REPORT OF CONSULTATION NAME: DYLAN TOUSSAINT UNIT #: [id number] ROOM: 424 DOCTOR: ULISSES DOMINGUEZ MD BIRTHDATE: [birth year] DOS: 08/06/2017 PULMONARY CONSULTATION, EVALUATION, AND MANAGEMENT CONSULTATION REQUESTED BY: Hospitalist service. REASON FOR CONSULTATION: For assessment of current acute abnormal respiratory symptoms and cough and possibility of acute pneumonia. HISTORY OF PRESENT ILLNESS: An 81-year-old white female patient presented to Emergency Room and the patient has been noted with gradual increase in the respiratory symptom in the past few days, but the symptoms have been noted gradually worsened with increased cough which has been reported nonproductive. The patient was also noted with symptoms of shortness of breath associated with that. Denies symptoms of wheezing. The patient denies symptoms of hemoptysis or chest pain. She has been currently noted with ongoing respiratory symptoms stated no improvement since hospitalization of 08/05/2017. The patient denies any symptoms of chest pain with that. REVIEW OF SYSTEMS: CONSTITUTIONAL SYMPTOMS: Fatigue and tiredness noted without symptoms of fever or chills. EYES: Denies any burning, redness, tenderness. EARS, NOSE, THROAT SYMPTOMS: Denies sore throat, hoarseness, otalgia, postnasal drainage or epistaxis. CARDIOVASCULAR: Denies joint pain, edema, and pain in the lower extremities. GASTROINTESTINAL: Dysphagia, nausea, vomiting, diarrhea, abdominal pain, hematemesis, melena, and hematochezia. The patient has been noted with chronic obesity of the abdomen. SKIN: No abnormal weight loss. CENTRAL NERVOUS SYSTEM: No dizziness, headache, diplopia, syncopal episodes. MUSCULOSKELETAL: No acute joint pain, redness, or tenderness. Remaining systems of the patient were reviewed, they were noted all negative. PAST MEDICAL HISTORY: 1. Previous hospitalization under care of the hospitalist services in 11/2016, the patient was treated for acute kidney injury with acute tubular necrosis for this patient at that time. 2. Pneumonia, which was treated in 03/2016. 3. Type 2 diabetes mellitus. 4. Essential hypertension. 5. Gastroesophageal reflux. 6. General anxiety disorder. 7. Past history of acute kidney injury. 8. Coronary artery disease. 9. Hyperlipidemia. PAST SURGICAL HISTORY: 1. Cardiac catheterization and coronary stents insertion. [place], [place] REPORT OF CONSULTATION NAME: DYLAN TOUSSAINT UNIT #: [id number] ROOM: 424 DOCTOR: KEEGAN LEON MD,ULISSES BIRTHDATE: [birth year] 2. Appendectomy. 3. Cholecystectomy. 4. Partial hysterectomy. 5. Therapeutic bronchoscopy done in 07/2016. SOCIAL HISTORY: The patient currently , lives at home, has not been noted and history of alcohol use, illicit drug use. She has 4 children. She was a lifetime nonsmoker. FAMILY HISTORY: The patient was reported for hypertension, coronary artery disease, stroke and lymphoma in one of her sisters. CURRENT MEDICATIONS: Administered noted use of Lovenox, metoprolol tartrate, aspirin, Paxil, omeprazole, Solu-Medrol 40 mg q.8 hours, DuoNeb q.4 hours., Zithromax and Rocephin and temazepam. DRUG ALLERGIES: ALLERGY TO THE TETANUS. PHYSICAL EXAMINATION: GENERAL: This is an 81-year-old elderly female who has been noted currently comfortably lying in the bed without acute distress. Height of 5 feet, weight of 28 pounds, BMI 40.7. VITAL SIGNS: Shows normal temperature, respiratory rate 18-20, heart rate 78-67, blood pressure 152/58 to 144/72. Pulse oxygen saturation on 2 liters nasal cannula 94% saturation. HEENT: Head was atraumatic. Eyes nonicterus. NECK: Supple and obese. Decreased posterior pharyngeal space, high tongue base crowding soft tissue structures. CARDIOVASCULAR: S1, S2 audible. LUNGS: The patient was noted with zrtw-np-nfkdlgiq decreased breath sounds. There were no wheezing or crackles heard. ABDOMEN: Soft with chronic obesity. Bowel sounds present without tenderness. CENTRAL NERVOUS SYSTEM: Cranial nerves 2-12 intact. MUSCULOSKELETAL: Without any acute deformities. SKIN: Noted without any lesions or rashes. LABORATORY DATA: CBC on 08/05/2017, the patient noted on admission as a normal WBCs, hemoglobin, hematocrit and platelet count. However, the differential noted 46 lymphocytes. The lactic acid 2.7, variable lactic acid elevation of the patient noted later on in the next 24 hours. CMP of the patient 514, BUN 13, creatinine 1.11, glucose of 385. Sodium 133. Influenza A and B, nasal washing antigens noted as negative. CMP of the patient of 08/06/2017, WBC count 3.8, hemoglobin and hematocrit normal, and platelet count were normal. The BMP for the patient on 08/06/2017, glucose 426, BUN 16, creatinine 1.29. TSH was normal. PT and PTT that was done this morning was normal. LFTs for the patient done on admission showed minimal elevation in AST is only 41. The output normal limits at 35. One view chest x-ray of the patient that was done, the patient does not reveal any acute abnormality. She has limited assessment will be done because of lack of the lateral cover the patient in the lower lungs. [place], [place] REPORT OF CONSULTATION NAME: DYLAN TOUSSAINT UNIT #: [id number] ROOM: [facility] DOCTOR: ULISSES DOMINGUEZ MD BIRTHDATE: [birth year] IMPRESSION: 1. The patient was admitted to the hospital, who developed acute respiratory symptoms, coughing, shortness of breath after exposure of a possibly viral illness. The patient from her granddaughter currently noted with ongoing cough. 2. Rule out pneumonia. 3. Consider viral syndrome. 4. Chronic Morbid obesity. 5. Past history of acute pneumonia for this patient, which has been treated in 03/2017. 6. Uncontrolled diabetes mellitus. PLAN OF MANAGEMENT: Discontinuation of Solu-Medrol is not necessary. Bronchospasm for the patient could be treated only with the bronchodilators. Continue current antibiotic. Respiratory viral panel for this patient to be continued. Other supportive therapy, plan of management care plan and other therapies. Medical management of control diabetes would be continued. Obtain a PA lateral chest x-ray today to exclude any pulmonary infiltration, especially in the lower lungs. Other plan of therapy. The patient to be continued as previously ordered. Viral panel for patient on the nasopharyngeal washing will be done. Thanks for allowing me to participate in the care of this patient. ULISSES ALLISON MD CM:CONSTR:REPORT OF CONSULTATION 1324 08/06/17 1949 interface
--- NOTE | ~2017-08-05 | EKG ---
[place], [place] ELECTROCARDIOGRAM REPORT NAME: DYLAN TOUSSAINT UNIT #: [id number] ROOM: 424 DOCTOR: ULISSES DOMINGUEZ MD BIRTHDATE: [birth year] DOS: 08/05/2017 ELECTROCARDIOGRAM TIME: 04:37 p.m. Normal sinus rhythm was noted. Possibility of old anterior inferior myocardial infarction. ULISSES ALLISON MD CM:EKGRPT:ELECTROCARDIOGRAM REPORT [id number] 1327 ULISSES LEON MD
--- NOTE | ~2017-08-05 | PR ---
[place], [place] PROGRESS NOTE NAME: DYLAN TOUSSAINT UNIT #: [id number] ROOM: 424 DOCTOR: KEEGAN LEON MD,ULISSES BIRTHDATE: [birth year] DOS: 08/08/2017 SUBJECTIVE: The patient has been noted comfortable at this time, resting on the bed. Coughing has been noted with gradual reduction. There were no symptoms of chest pain or hemoptysis. Denies symptoms of any acute abdominal pain. The cough has been noted nonproductive. OBJECTIVE: VITAL SIGNS: Normal temperature, respiratory rate 20, heart rate 64, blood pressure 148/88. Pulse ox saturation on room air 93% saturation. HEENT: Examination shows head was atraumatic. Eyes nonicterus. NECK: Supple. CARDIOVASCULAR: S1, S2 audible. LUNGS: Noted with odkg-dr-urrnzpau decreased breath sounds in the lungs bilaterally. ABDOMEN: Soft, obese, nontender. EXTREMITIES: Without any acute edema. LABORATORY DATA: The patient's CBC was noted normal results. BMP this morning, glucose 187, otherwise normal BMP. IMPRESSION: 1. The patient was ____ noted progressive improvement and resolution of the acute respiratory symptoms of acute bronchitis at the present time. 2. Chronic severe obesity. PLAN OF THERAPY: The patient could be considered for home discharge on oral medication whenever desired. In the meantime, continue current plan of treatment and therapies as previously. Usual care. ULISSES ALLISON MD CM:PNTRANS 1122 1524 ULISSES LEON MD 08/08/17 1523 interface
[2017-08-05 16:16] VITALS: BP 166/112
[2017-08-05 17:35] LABS: BASO % 0.5 % (0.0-1.0); EOS # 0.1 10*3/uL (0.0-0.4); EOS % 2.5 % (1.0-4.0); HEMATOCRIT 45.2 % (37.0-47.0); HEMOGLOBIN 14.8 g/dl (12.0-16.0); LYMPH # 2.6 10*3/uL (1.3-4.4); LYMPH % 46.5 % (27.0-41.0); MEAN CELL VOLUME 91.5 fl (81.0-99.0); MEAN CORPUSCULAR HGB CONC 32.7 g/dl (33.0-37.0); MEAN PLATELET VOLUME 10.2 fl (9.6-12.3); MONO # 0.4 10*3/uL (0.1-1.0); MONO % 6.5 % (3.0-9.0); NEUT # 2.5 10*3/uL (2.3-7.9); NEUT % 43.8 % (47.0-73.0); PLATELET COUNT AUTOMATED 160 10*3/uL (130-400); RED BLOOD COUNT 4.94 10*6/uL (4.10-5.10); RED CELL DISTRI WIDTH 13.7 % (0-14.5); WHITE BLOOD COUNT 5.7 10*3/uL (4.8-10.8)
[2017-08-05 17:47] VITALS: BP 147/65
[2017-08-05 17:50] LABS: ALBUMIN 3.2 gm/dl (3.1-4.5); ALKALINE PHOSPHATASE 80 U/L (45-117); BUN 13 mg/dl (7-24); CHLORIDE 97 mmol/L (98-107); CREATININE 1.11 mg/dL (0.55-1.02); SGOT/AST 41 IU/L (3-35); SGPT/ALT 36 U/L (12-78); SODIUM 133 mmol/L (136-145); TOTAL PROTEIN 7.8 gm/dL (6.4-8.2)
[2017-08-05 17:51] LABS: TROPONIN I < 0.015 ng/ml (<0.045)
[2017-08-05 18:33] VITALS: BP 143/65
[2017-08-05 19:00] VITALS: BP 141/90
[2017-08-05 20:00] VITALS: BP 141/90
[2017-08-06] VITALS: BP 144/72
[2017-08-06 04:00] VITALS: BP 164/80
[2017-08-06 05:17] LABS: BASO % 0.3 % (0.0-1.0); HEMATOCRIT 43.2 % (37.0-47.0); HEMOGLOBIN 14.2 g/dl (12.0-16.0); LYMPH # 0.9 10*3/uL (1.3-4.4); LYMPH % 22.4 % (27.0-41.0); MEAN CELL VOLUME 90.9 fl (81.0-99.0); MEAN CORPUSCULAR HGB 29.9 pg (27.0-31.0); MEAN CORPUSCULAR HGB CONC 32.9 g/dl (33.0-37.0); MEAN PLATELET VOLUME 10.4 fl (9.6-12.3); MONO # 0.1 10*3/uL (0.1-1.0); MONO % 2.3 % (3.0-9.0); NEUT # 2.9 10*3/uL (2.3-7.9); NEUT % 74.2 % (47.0-73.0); PLATELET COUNT AUTOMATED 150 10*3/uL (130-400); RED BLOOD COUNT 4.75 10*6/uL (4.10-5.10); RED CELL DISTRI WIDTH 13.8 % (0-14.5); WHITE BLOOD COUNT 3.8 10*3/uL (4.8-10.8)
[2017-08-06 05:23] LABS: ACT PARTIAL THROMBO TIME 26.4 SECONDS (20.8-31.5)
[2017-08-06 05:35] LABS: CREATININE 1.29 mg/dL (0.55-1.02); POTASSIUM 3.9 mmol/L (3.5-5.1)
[2017-08-06 05:46] LABS: THYROID STIM HORMONE (HS) 0.542 uIU/ml (0.358-4.75)
[2017-08-06 06:27] LABS: BILIRUBIN NEGATIVE (NEGATIVE); BLOOD 3+ (NEGATIVE); CLARITY CLEAR (CLEAR); COLOR YELLOW (YELLOW); GLUCOSE 3+ (NEGATIVE); KETONE NEGATIVE (NEGATIVE); LEUKO ESTERASE NEGATIVE (NEGATIVE); NITRITE NEGATIVE (NEGATIVE); UROBILINOGEN 0.2 E.U./dl (0.2-1.0)
[2017-08-06 07:13] LABS: BACTERIA TRACE; RBC TNTC rbc/hpf (0-2)
[2017-08-06 08:00] VITALS: BP 146/77
[2017-08-06 12:00] VITALS: BP 152/58
[2017-08-06 16:00] VITALS: BP 152/75
[2017-08-06 20:00] VITALS: BP 152/75
[2017-08-07] VITALS: BP 138/67
[2017-08-07 08:00] VITALS: BP 122/90
[2017-08-07 08:52] LABS: BASO % 0.2 % (0.0-1.0); EOS # 0.1 10*3/uL (0.0-0.4); EOS % 0.9 % (1.0-4.0); HEMATOCRIT 40.1 % (37.0-47.0); HEMOGLOBIN 13.4 g/dl (12.0-16.0); LYMPH # 3.7 10*3/uL (1.3-4.4); LYMPH % 40.2 % (27.0-41.0); MEAN CELL VOLUME 90.7 fl (81.0-99.0); MEAN CORPUSCULAR HGB 30.3 pg (27.0-31.0); MEAN CORPUSCULAR HGB CONC 33.4 g/dl (33.0-37.0); MEAN PLATELET VOLUME 10.2 fl (9.6-12.3); MONO # 0.5 10*3/uL (0.1-1.0); MONO % 5.4 % (3.0-9.0); NEUT # 4.9 10*3/uL (2.3-7.9); NEUT % 53.1 % (47.0-73.0); PLATELET COUNT AUTOMATED 194 10*3/uL (130-400); RED BLOOD COUNT 4.42 10*6/uL (4.10-5.10); RED CELL DISTRI WIDTH 13.9 % (0-14.5); WHITE BLOOD COUNT 9.3 10*3/uL (4.8-10.8)
[2017-08-07 09:21] LABS: BUN 21 mg/dl (7-24); CHLORIDE 104 mmol/L (98-107); CREATININE 0.91 mg/dL (0.55-1.02); POTASSIUM 3.6 mmol/L (3.5-5.1); SODIUM 138 mmol/L (136-145)
[2017-08-07 12:00] VITALS: BP 158/62
[2017-08-07 16:00] VITALS: BP 130/98
[2017-08-07 20:04] VITALS: BP 139/64
[2017-08-08 00:08] VITALS: BP 147/72
[2017-08-08 06:05] LABS: BUN 18 mg/dl (7-24); CHLORIDE 104 mmol/L (98-107); CREATININE 0.83 mg/dL (0.55-1.02); POTASSIUM 3.8 mmol/L (3.5-5.1); SODIUM 139 mmol/L (136-145)
[2017-08-08 06:33] LABS: BASO % 0.4 % (0.0-1.0); EOS # 0.2 10*3/uL (0.0-0.4); EOS % 2.7 % (1.0-4.0); HEMATOCRIT 40.2 % (37.0-47.0); HEMOGLOBIN 13.2 g/dl (12.0-16.0); LYMPH # 4.3 10*3/uL (1.3-4.4); LYMPH % 49.8 % (27.0-41.0); MEAN CELL VOLUME 91.2 fl (81.0-99.0); MEAN CORPUSCULAR HGB 29.9 pg (27.0-31.0); MEAN CORPUSCULAR HGB CONC 32.8 g/dl (33.0-37.0); MEAN PLATELET VOLUME 10.5 fl (9.6-12.3); MONO # 0.5 10*3/uL (0.1-1.0); MONO % 5.5 % (3.0-9.0); NEUT # 3.5 10*3/uL (2.3-7.9); NEUT % 41.2 % (47.0-73.0); PLATELET COUNT AUTOMATED 180 10*3/uL (130-400); RED BLOOD COUNT 4.41 10*6/uL (4.10-5.10); RED CELL DISTRI WIDTH 13.7 % (0-14.5); WHITE BLOOD COUNT 8.5 10*3/uL (4.8-10.8)
[2017-08-08 08:00] VITALS: BP 148/88
[2017-08-08] MEDS ORDERED: DOXYCYCLINE100 M3 PO (11:31)
[2017-08-08] MEDS ORDERED: LOPRESSOR25 MG PO (11:31)
[2017-08-08] MEDS ORDERED: LANTUS SOL100 UNIT/1 SQ (11:31)
[2017-08-08 12:00] VITALS: BP 142/84
[2017-08-08 16:00] VITALS: BP 165/69
[2017-08-09 00:07] LABS: ADENOVIRUS Negative (Negative); INFLUENZA A Negative (Negative); INFLUENZA B Negative (Negative); METAPNEUMOVIRUS Negative (Negative); PARAINFLUENZA 1 Negative (Negative); PARAINFLUENZA 2 Negative (Negative); PARAINFLUENZA 3 Negative (Negative); RHINOVIRUS Negative (Negative); RSV A Negative (Negative); RSV B Negative (Negative)
== END 2017-08-08 17:00 | disposition home or self-care (01) | DRG 871 ==
LOC: ED 16:04 → EDHOLD 18:04 → 4E 18:04
PROVIDERS: Internal Medicine; Internal Medicine Critical Care Medicine; Nurse Practitioner Family; Student in an Organized Health Care Education/Training Program
DX: A41.9 Sepsis, unspecified organism (principal); J18.9 Pneumonia, unspecified organism; J96.00 Acute respiratory failure, unspecified whether with hypoxia or hypercapnia; N17.9 Acute kidney failure, unspecified; E11.65 Type 2 diabetes mellitus with hyperglycemia; I47.1 Supraventricular tachycardia; E87.1 Hypo-osmolality and hyponatremia; Z68.41 Body mass index [BMI] 40.0-44.9, adult; R65.20 Severe sepsis without septic shock; E66.01 Morbid (severe) obesity due to excess calories; E53.8 Deficiency of other specified B group vitamins; I25.10 Atherosclerotic heart disease of native coronary artery without angina pectoris; K21.9 Gastro-esophageal reflux disease without esophagitis; F41.1 Generalized anxiety disorder; G47.00 Insomnia, unspecified; E78.2 Mixed hyperlipidemia; J20.9 Acute bronchitis, unspecified; J20.8 Acute bronchitis due to other specified organisms; Z90.49 Acquired absence of other specified parts of digestive tract; Z90.710 Acquired absence of both cervix and uterus; Z82.49 Family history of ischemic heart disease and other diseases of the circulatory system; Z82.3 Family history of stroke; Z80.9 Family history of malignant neoplasm, unspecified; Z88.7 Allergy status to serum and vaccine

== ENCOUNTER 2018-02-10 18:57 | Emergency (ER) | payer OTHER ==
[~2018-02-10] VITALS: Ht 152.4 cm; Wt 88.5 kg
--- NOTE | ~2018-02-10 | EKG ---
[place], [place] ELECTROCARDIOGRAM REPORT NAME: DYLAN TOUSSAINT UNIT #: [id number] ROOM: DOCTOR: EPIPHANY DRAFT REPORT BIRTHDATE: [birth year] [facility] Test Date: 2018-02-10 Test Time: 19:34:01 Pat Name: DYLAN TOUSSAINT Department: ER Room: 7 Gender: F Program Management Specialist: EKG.CA : 1935 Requested By: NICOLLE GREENE Order Number: [id number] Reading MD: Mazin Valadez MD Measurements Intervals [place] Rate: 62 P: 51 OR: 164 QRS: 103 QRSD: 109 T: 37 QT: 447 QTc: 454 Interpretive Statements Sinus rhythm Atrial premature complex Right axis deviation Low voltage, precordial leads RSR' in V1 or V2, probably normal variant Nonspecific T abnormalities, anterior leads Electronically Signed On 02-11-2018 4:07:20 PST by Mazin Valadez MD CM:EKGRPT:ELECTROCARDIOGRAM REPORT 33 6 NICOLLE GREENE EPIPHANY DRAFT REPORT NICOLLE GREENE
[~2018-02-10 18:57] MED LIST changes: +DOXYCYCLINE100 M3 PO; +LANTUS SOL100 UNIT/1 SQ; +LOPRESSOR25 MG PO
[2018-02-10 18:59] VITALS: BP 135/40
[2018-02-10 19:59] LABS: BASO % 0.6 % (0.0-1.0); EOS # 0.4 10*3/uL (0.0-0.4); EOS % 4.8 % (1.0-4.0); LYMPH # 3.6 10*3/uL (1.3-4.4); LYMPH % 50.2 % (27.0-41.0); MEAN CELL VOLUME 92.3 fl (81.0-99.0); MEAN CORPUSCULAR HGB 30.8 pg (27.0-31.0); MEAN CORPUSCULAR HGB CONC 33.3 g/dl (33.0-37.0); MEAN PLATELET VOLUME 10.2 fl (9.6-12.3); MONO # 0.5 10*3/uL (0.1-1.0); MONO % 6.4 % (3.0-9.0); NEUT # 2.7 10*3/uL (2.3-7.9); NEUT % 37.7 % (47.0-73.0); PLATELET COUNT AUTOMATED 208 10*3/uL (130-400); RED BLOOD COUNT 4.55 10*6/uL (4.10-5.10); RED CELL DISTRI WIDTH 13.2 % (0-14.5); WHITE BLOOD COUNT 7.2 10*3/uL (4.8-10.8)
[2018-02-10 20:14] LABS: ALBUMIN 3.2 gm/dl (3.1-4.5); ALKALINE PHOSPHATASE 72 U/L (45-117); BUN 12 mg/dl (7-24); CHLORIDE 102 mmol/L (98-107); CREATININE 0.99 mg/dL (0.55-1.02); POTASSIUM 4.1 mmol/L (3.5-5.1); SGOT/AST 20 IU/L (3-35); SGPT/ALT 23 U/L (12-78); SODIUM 137 mmol/L (136-145); TOTAL PROTEIN 7.7 gm/dL (6.4-8.2)
[2018-02-10 20:15] LABS: TROPONIN I < 0.015 ng/ml (<0.045)
[2018-02-10] MEDS ORDERED: ZITHROMAX250 MG PO (21:26)
== END 2018-02-10 21:45 | disposition home or self-care (01) ==
LOC: ED 18:57
PROVIDERS: Nurse Practitioner
DX: J40 Bronchitis, not specified as acute or chronic (principal); E11.9 Type 2 diabetes mellitus without complications; K21.9 Gastro-esophageal reflux disease without esophagitis; Z88.7 Allergy status to serum and vaccine; Z79.4 Long term (current) use of insulin; Z79.2 Long term (current) use of antibiotics; Z79.82 Long term (current) use of aspirin; Z79.899 Other long term (current) drug therapy; Z90.49 Acquired absence of other specified parts of digestive tract

== ENCOUNTER → 2018-04-28 | Outpatient (CLI) | payer OTHER ==
[~2018-04-28] MED LIST changes: +INSULIN SQ; +OMEGA-31000 M1 PO; +VITAMIN D35000 UNIT PO; +ZITHROMAX250 MG PO
[2018-04-28 17:26] LABS: BASO % 0.3 % (0.0-1.0); EOS # 0.4 10*3/uL (0.0-0.4); EOS % 4.3 % (1.0-4.0); HEMATOCRIT 42.4 % (37.0-47.0); HEMOGLOBIN 14.4 g/dl (12.0-16.0); LYMPH # 3.7 10*3/uL (1.3-4.4); LYMPH % 41.1 % (27.0-41.0); MEAN CELL VOLUME 90.4 fl (81.0-99.0); MEAN CORPUSCULAR HGB 30.7 pg (27.0-31.0); MONO # 0.5 10*3/uL (0.1-1.0); MONO % 5.1 % (3.0-9.0); NEUT # 4.4 10*3/uL (2.3-7.9); PLATELET COUNT AUTOMATED 212 10*3/uL (130-400); RED BLOOD COUNT 4.69 10*6/uL (4.10-5.10); RED CELL DISTRI WIDTH 13.3 % (0-14.5); WHITE BLOOD COUNT 9.1 10*3/uL (4.8-10.8)
[2018-04-28 17:54] LABS: ALBUMIN 3.3 gm/dl (3.1-4.5); ALKALINE PHOSPHATASE 78 U/L (45-117); BILIRUBIN, DIRECT < 0.1 mg/dL (0.0-0.2); BUN 15 mg/dl (7-24); CHLORIDE 101 mmol/L (98-107); POTASSIUM 3.9 mmol/L (3.5-5.1); SGOT/AST 23 IU/L (3-35); SGPT/ALT 21 U/L (12-78); SODIUM 137 mmol/L (136-145); TOTAL PROTEIN 7.9 gm/dL (6.4-8.2)
== END | disposition home or self-care (01) ==
LOC: LAB 17:02
PROVIDERS: Family Medicine
DX: E11.9 Type 2 diabetes mellitus without complications (principal)

== ENCOUNTER → 2018-07-30 | Outpatient (CLI) | payer OTHER ==
[2018-07-30 14:57] LABS: BASO # 0.1 10*3/uL (0.0-0.1); BASO % 0.7 % (0.0-1.0); EOS # 0.5 10*3/uL (0.0-0.4); EOS % 5.7 % (1.0-4.0); HEMATOCRIT 44.4 % (37.0-47.0); HEMOGLOBIN 14.5 g/dl (12.0-16.0); LYMPH # 3.7 10*3/uL (1.3-4.4); LYMPH % 42.2 % (27.0-41.0); MEAN CELL VOLUME 93.5 fl (81.0-99.0); MEAN CORPUSCULAR HGB 30.5 pg (27.0-31.0); MEAN CORPUSCULAR HGB CONC 32.7 g/dl (33.0-37.0); MEAN PLATELET VOLUME 9.8 fl (9.6-12.3); MONO # 0.5 10*3/uL (0.1-1.0); MONO % 5.1 % (3.0-9.0); NEUT # 4.1 10*3/uL (2.3-7.9); NEUT % 46.1 % (47.0-73.0); PLATELET COUNT AUTOMATED 221 10*3/uL (130-400); RED BLOOD COUNT 4.75 10*6/uL (4.10-5.10); RED CELL DISTRI WIDTH 13.5 % (0-14.5); WHITE BLOOD COUNT 8.8 10*3/uL (4.8-10.8)
[2018-07-30 15:31] LABS: ALBUMIN 3.4 gm/dl (3.1-4.5); ALKALINE PHOSPHATASE 78 U/L (45-117); BILIRUBIN, DIRECT < 0.1 mg/dL (0.0-0.2); BUN 10 mg/dl (7-24); CHLORIDE 103 mmol/L (98-107); CREATININE 0.97 mg/dL (0.55-1.02); POTASSIUM 3.9 mmol/L (3.5-5.1); SGOT/AST 20 IU/L (3-35); SGPT/ALT 19 U/L (12-78); SODIUM 138 mmol/L (136-145); TOTAL PROTEIN 7.6 gm/dL (6.4-8.2)
== END | disposition home or self-care (01) ==
LOC: LAB 14:38
PROVIDERS: Family Medicine
DX: E11.9 Type 2 diabetes mellitus without complications (principal)

== ENCOUNTER 2019-01-04 23:43 | Emergency (ER) | payer OTHER ==
[~2019-01-04] VITALS: Ht 152.4 cm; Wt 100.7 kg
[2019-01-04 23:44] VITALS: BP 129/81
[2019-01-05 00:23] LABS: BASO # 0.1 10*3/uL (0.0-0.1); BASO % 0.6 % (0.0-1.0); EOS # 0.4 10*3/uL (0.0-0.4); HEMATOCRIT 39.9 % (37.0-47.0); HEMOGLOBIN 13.1 g/dl (12.0-16.0); LYMPH # 3.1 10*3/uL (1.3-4.4); LYMPH % 37.4 % (27.0-41.0); MEAN CORPUSCULAR HGB 30.5 pg (27.0-31.0); MEAN CORPUSCULAR HGB CONC 32.8 g/dl (33.0-37.0); MEAN PLATELET VOLUME 9.9 fl (9.6-12.3); MONO # 0.4 10*3/uL (0.1-1.0); MONO % 5.4 % (3.0-9.0); NEUT # 4.2 10*3/uL (2.3-7.9); NEUT % 51.5 % (47.0-73.0); PLATELET COUNT AUTOMATED 208 10*3/uL (130-400); RED BLOOD COUNT 4.29 10*6/uL (4.10-5.10); RED CELL DISTRI WIDTH 13.2 % (0-14.5); WHITE BLOOD COUNT 8.2 10*3/uL (4.8-10.8)
[2019-01-05 00:44] LABS: CREATININE 1.11 mg/dL (0.55-1.02); POTASSIUM 3.9 mmol/L (3.5-5.1)
[2019-01-05] MEDS ORDERED: CEPHALEXIN500 M1 PO (01:11)
== END 2019-01-05 01:30 | disposition home or self-care (01) ==
LOC: ED 23:43
PROVIDERS: Nurse Practitioner Family
DX: S92.525A Nondisplaced fracture of middle phalanx of left lesser toe(s), initial encounter for closed fracture (principal); L03.032 Cellulitis of left toe; E11.9 Type 2 diabetes mellitus without complications; I25.10 Atherosclerotic heart disease of native coronary artery without angina pectoris; E78.5 Hyperlipidemia, unspecified; K21.9 Gastro-esophageal reflux disease without esophagitis; Z88.7 Allergy status to serum and vaccine; Z79.82 Long term (current) use of aspirin; Z79.899 Other long term (current) drug therapy; Z90.49 Acquired absence of other specified parts of digestive tract; X58.XXXA Exposure to other specified factors, initial encounter; Y93.89 Activity, other specified; Y92.89 Other specified places as the place of occurrence of the external cause; Y99.8 Other external cause status

== ENCOUNTER → 2019-01-13 | Outpatient (CLI) | payer OTHER ==
[~2019-01-13] MED LIST changes: +CEFADROXIL500 M1 PO; +CEPHALEXIN500 M1 PO
[2019-01-13 18:09] LABS: BASO # 0.1 10*3/uL (0.0-0.1); BASO % 0.5 % (0.0-1.0); EOS # 0.5 10*3/uL (0.0-0.4); EOS % 5.6 % (1.0-4.0); HEMATOCRIT 41.5 % (37.0-47.0); HEMOGLOBIN 13.4 g/dl (12.0-16.0); LYMPH # 3.3 10*3/uL (1.3-4.4); LYMPH % 36.2 % (27.0-41.0); MEAN CELL VOLUME 95.2 fl (81.0-99.0); MEAN CORPUSCULAR HGB 30.7 pg (27.0-31.0); MEAN CORPUSCULAR HGB CONC 32.3 g/dl (33.0-37.0); MEAN PLATELET VOLUME 10.2 fl (9.6-12.3); MONO # 0.6 10*3/uL (0.1-1.0); MONO % 6.7 % (3.0-9.0); NEUT # 4.7 10*3/uL (2.3-7.9); NEUT % 50.8 % (47.0-73.0); PLATELET COUNT AUTOMATED 229 10*3/uL (130-400); RED BLOOD COUNT 4.36 10*6/uL (4.10-5.10); RED CELL DISTRI WIDTH 13.6 % (0-14.5); WHITE BLOOD COUNT 9.2 10*3/uL (4.8-10.8)
[2019-01-13 18:39] LABS: ALBUMIN 3.2 gm/dl (3.1-4.5); BILIRUBIN, DIRECT < 0.1 mg/dL (0.0-0.2); BUN 9 mg/dl (7-24); CHLORIDE 102 mmol/L (98-107); CREATININE 0.87 mg/dL (0.55-1.02); POTASSIUM 3.9 mmol/L (3.5-5.1); SGOT/AST 15 IU/L (3-35); SGPT/ALT 18 U/L (12-78); SODIUM 136 mmol/L (136-145); TOTAL PROTEIN 7.3 gm/dL (6.4-8.2)
[2019-01-13 18:40] LABS: ALKALINE PHOSPHATASE 72 U/L (45-117)
== END | disposition home or self-care (01) ==
LOC: LAB 17:01
PROVIDERS: Family Medicine
DX: M19.041 Primary osteoarthritis, right hand (principal); I51.7 Cardiomegaly; E11.9 Type 2 diabetes mellitus without complications; I25.10 Atherosclerotic heart disease of native coronary artery without angina pectoris; R07.81 Pleurodynia

== ENCOUNTER 2019-01-17 15:55 | Emergency (ER) | payer OTHER ==
[~2019-01-17] VITALS: Ht 149.8 cm; Wt 93.4 kg
[~2019-01-17 15:55] MED LIST changes: -CEFADROXIL500 M1 PO
[2019-01-17 15:58] VITALS: BP 128/66
[2019-01-17] MEDS ORDERED: CEFADROXIL500 M1 PO (18:07)
== END 2019-01-17 18:18 | disposition home or self-care (01) ==
LOC: ED 15:55
DX: M79.675 Pain in left toe(s) (principal); E11.9 Type 2 diabetes mellitus without complications; Z88.7 Allergy status to serum and vaccine; Z79.899 Other long term (current) drug therapy; Z79.82 Long term (current) use of aspirin

== ENCOUNTER 2019-09-02 01:39 | Emergency (ER) | payer MEDICARE ==
[~2019-09-02] VITALS: Wt 95.3 kg
[~2019-09-02 01:39] MED LIST changes: +CEFADROXIL500 M1 PO
[2019-09-02 01:53] VITALS: BP 131/98
[2019-09-02 02:50] LABS: BASO % 0.3 % (0.0-1.0); EOS # 0.3 10*3/uL (0.0-0.4); EOS % 2.9 % (1.0-4.0); HEMATOCRIT 43.6 % (37.0-47.0); LYMPH % 34.1 % (27.0-41.0); MEAN CELL VOLUME 94.8 fl (81.0-99.0); MEAN CORPUSCULAR HGB 31.3 pg (27.0-31.0); MEAN PLATELET VOLUME 9.7 fl (9.6-12.3); MONO # 0.8 10*3/uL (0.1-1.0); MONO % 6.6 % (3.0-9.0); NEUT # 6.6 10*3/uL (2.3-7.9); NEUT % 55.8 % (47.0-73.0); PLATELET COUNT AUTOMATED 250 10*3/uL (130-400); RED CELL DISTRI WIDTH 13.4 % (0-14.5); WHITE BLOOD COUNT 11.8 10*3/uL (4.8-10.8)
[2019-09-02 03:04] LABS: ALBUMIN 3.5 gm/dl (3.1-4.5); CREATININE 1.23 mg/dL (0.55-1.02); TOTAL PROTEIN 8.1 gm/dL (6.4-8.2)
[2019-09-02 05:12] LABS: BILIRUBIN NEGATIVE (NEGATIVE); BLOOD 3+ (NEGATIVE); CLARITY SL CLOUDY (CLEAR); COLOR RED (YELLOW); GLUCOSE NEGATIVE (NEGATIVE); KETONE NEGATIVE (NEGATIVE)
[2019-09-02 05:13] LABS: LEUKO ESTERASE TRACE (NEGATIVE); NITRITE NEGATIVE (NEGATIVE); UROBILINOGEN 0.2 E.U./dl (0.2-1.0)
[2019-09-02 05:19] LABS: RBC TNTC rbc/hpf (0-2)
== END 2019-09-02 06:05 | disposition home or self-care (01) ==
LOC: ED 01:39
PROVIDERS: Emergency Medicine
DX: N93.8 Other specified abnormal uterine and vaginal bleeding (principal); I25.10 Atherosclerotic heart disease of native coronary artery without angina pectoris; K21.9 Gastro-esophageal reflux disease without esophagitis; E78.2 Mixed hyperlipidemia; E11.9 Type 2 diabetes mellitus without complications; E78.00 Pure hypercholesterolemia, unspecified; Z88.7 Allergy status to serum and vaccine; Z79.899 Other long term (current) drug therapy; Z79.82 Long term (current) use of aspirin

== ENCOUNTER → 2019-09-29 | Outpatient (CLI) | payer MEDICARE ==
[~2019-09-29] MED LIST changes: +Clopidogrel75 MG PO; +IMDUR SA30 MG PO; +LEVEMIR FL100 UNIT/1 SC; +LIPITOR20 MG PO; +METOPROLOL25 MG PO; +[UNRECOGNIZED DRUG - OTHER] PO
--- NOTE | 2019-09-29 07:10 | NUR ---
INFORMED CONSENT SIGNED FOR LEXISCAN STRESS TEST WITH DR. MEIER. RESTING EKG NSR WITH RARE PVC'S AND PAC'S. HR 62, 152/76. PULSE OX 94% AND BREATH SOUNDS CLEAR BUT DEMINISHED BILATERALLY. COMPLETED ONE MINUTE OF LEXISCAN PROTROCOL RECEIVING 0.4MG OF LEXISCAN OVER 10 SECONDS. NO ARRHYTHMIAS OR ST CHANGES NOTED. PT DID C/O SOB. LAST RECOVERY HR 68, BP 148/68. WAITING NUCLEAR SCANNING IN STABLE CONDITION.
== END | disposition home or self-care (01) ==
LOC: CARD 00:06
DX: I25.9 Chronic ischemic heart disease, unspecified (principal)

== ENCOUNTER → 2019-12-31 | Outpatient (CLI) | payer MEDICARE | END | disposition home or self-care (01) | LOC: CARD 15:16 | PROVIDERS: ATTEND Family Medicine | DX: R00.1 Bradycardia, unspecified (principal); I25.10 Atherosclerotic heart disease of native coronary artery without angina pectoris; I45.10 Unspecified right bundle-branch block; R94.31 Abnormal electrocardiogram [ECG] [EKG] ==

== ENCOUNTER 2020-05-05 21:29 | Observation (INO) | payer MEDICARE ==
[~2020-05-05] VITALS: Ht 149.8 cm; Wt 99.8 kg
[2020-05-05 21:41] VITALS: BP 139/110
[2020-05-05 21:48] VITALS: BP 130/50
[2020-05-05 22:01] LABS: BASO % 0.3 % (0.0-1.0); EOS # 0.5 10*3/uL (0.0-0.4); EOS % 5.1 % (1.0-4.0); HEMATOCRIT 43.5 % (37.0-47.0); LYMPH % 34.1 % (27.0-41.0); MEAN CORPUSCULAR HGB 30.8 pg (27.0-31.0); MEAN CORPUSCULAR HGB CONC 32.4 g/dl (33.0-37.0); MEAN PLATELET VOLUME 9.8 fl (9.6-12.3); MONO # 0.4 10*3/uL (0.1-1.0); MONO % 4.8 % (3.0-9.0); NEUT # 4.9 10*3/uL (2.3-7.9); NEUT % 55.3 % (47.0-73.0); PLATELET COUNT AUTOMATED 213 10*3/uL (130-400); RED BLOOD COUNT 4.58 10*6/uL (4.10-5.10); RED CELL DISTRI WIDTH 13.3 % (0-14.5); WHITE BLOOD COUNT 8.9 10*3/uL (4.8-10.8)
[2020-05-05 22:12] LABS: ACT PARTIAL THROMBO TIME 26.8 SECONDS (20.0-32.1)
[2020-05-05 22:19] LABS: ALKALINE PHOSPHATASE 81 U/L (45-117); BUN 14 mg/dl (7-24); CHLORIDE 105 mmol/L (98-107); CREATININE 1.06 mg/dL (0.55-1.02); POTASSIUM 3.7 mmol/L (3.5-5.1); SGOT/AST 14 IU/L (3-35); SGPT/ALT 18 U/L (12-78); SODIUM 140 mmol/L (136-145); TOTAL PROTEIN 7.1 gm/dL (6.4-8.2)
[2020-05-05 22:22] LABS: TROPONIN I < 0.015 ng/ml (<0.045)
[2020-05-06 03:42] LABS: BASO % 0.4 % (0.0-1.0); EOS # 0.4 10*3/uL (0.0-0.4); EOS % 4.8 % (1.0-4.0); HEMATOCRIT 40.9 % (37.0-47.0); LYMPH # 2.4 10*3/uL (1.3-4.4); LYMPH % 31.1 % (27.0-41.0); MEAN CELL VOLUME 95.3 fl (81.0-99.0); MEAN CORPUSCULAR HGB 30.8 pg (27.0-31.0); MEAN CORPUSCULAR HGB CONC 32.3 g/dl (33.0-37.0); MEAN PLATELET VOLUME 10.2 fl (9.6-12.3); MONO # 0.6 10*3/uL (0.1-1.0); MONO % 7.2 % (3.0-9.0); NEUT # 4.3 10*3/uL (2.3-7.9); NEUT % 56.1 % (47.0-73.0); PLATELET COUNT AUTOMATED 194 10*3/uL (130-400); RED BLOOD COUNT 4.29 10*6/uL (4.10-5.10); RED CELL DISTRI WIDTH 13.5 % (0-14.5); WHITE BLOOD COUNT 7.7 10*3/uL (4.8-10.8)
[2020-05-06 03:58] LABS: CREATININE 1.14 mg/dL (0.55-1.02); POTASSIUM 3.8 mmol/L (3.5-5.1)
[2020-05-06 04:00] VITALS: BP 122/78
[2020-05-06 04:10] LABS: FREE T4 0.83 ng/dl (0.76-1.46); THYROID STIM HORMONE (HS) 2.89 uIU/ml (0.358-4.75)
[2020-05-06 07:40] VITALS: BP 145/51
== END 2020-05-06 14:56 | disposition home or self-care (01) ==
LOC: ED 21:29 → EDHOLD 22:36 → 4E 05-06 07:45
PROVIDERS: Internal Medicine; ADMIT Internal Medicine; ATTEND Internal Medicine
DX: R07.89 Other chest pain (principal); J96.01 Acute respiratory failure with hypoxia; I25.10 Atherosclerotic heart disease of native coronary artery without angina pectoris; F41.1 Generalized anxiety disorder; K21.9 Gastro-esophageal reflux disease without esophagitis; E78.2 Mixed hyperlipidemia; I12.9 Hypertensive chronic kidney disease with stage 1 through stage 4 chronic kidney disease, or unspecified chronic kidney disease; E11.22 Type 2 diabetes mellitus with diabetic chronic kidney disease; N18.31 Chronic kidney disease, stage 3a; R00.1 Bradycardia, unspecified; E44.0 Moderate protein-calorie malnutrition; E66.01 Morbid (severe) obesity due to excess calories; E11.65 Type 2 diabetes mellitus with hyperglycemia; Z79.82 Long term (current) use of aspirin; Z79.4 Long term (current) use of insulin

== ENCOUNTER → 2020-05-17 | Outpatient (CLI) | payer MEDICARE | END | disposition home or self-care (01) | LOC: CARD 05-10 08:00 | PROVIDERS: ATTEND Internal Medicine Cardiovascular Disease | DX: R07.9 Chest pain, unspecified (principal); R53.81 Other malaise ==

== ENCOUNTER → 2020-07-07 | Outpatient (CLI) | payer MEDICARE ==
[2020-07-07 17:23] LABS: BASO # 0.1 10*3/uL (0.0-0.1); BASO % 0.5 % (0.0-1.0); EOS # 0.4 10*3/uL (0.0-0.4); EOS % 3.8 % (1.0-4.0); HEMATOCRIT 48.2 % (37.0-47.0); LYMPH # 3.9 10*3/uL (1.3-4.4); LYMPH % 34.7 % (27.0-41.0); MEAN CELL VOLUME 92.5 fl (81.0-99.0); MEAN CORPUSCULAR HGB 29.6 pg (27.0-31.0); MEAN PLATELET VOLUME 9.7 fl (9.6-12.3); MONO # 0.5 10*3/uL (0.1-1.0); MONO % 4.8 % (3.0-9.0); NEUT # 6.2 10*3/uL (2.3-7.9); PLATELET COUNT AUTOMATED 228 10*3/uL (130-400); RED BLOOD COUNT 5.21 10*6/uL (4.10-5.10); RED CELL DISTRI WIDTH 13.5 % (0-14.5); WHITE BLOOD COUNT 11.1 10*3/uL (4.8-10.8)
[2020-07-07 18:04] LABS: ALBUMIN 3.3 gm/dl (3.1-4.5); ALKALINE PHOSPHATASE 86 U/L (45-117); BILIRUBIN, DIRECT < 0.1 mg/dL (0.0-0.2); BUN 14 mg/dl (7-24); CHLORIDE 103 mmol/L (98-107); CREATININE 1.01 mg/dL (0.55-1.02); POTASSIUM 4.3 mmol/L (3.5-5.1); SGOT/AST 13 IU/L (3-35); SGPT/ALT 15 U/L (12-78); SODIUM 137 mmol/L (136-145); THYROXINE (T4) TOTAL 7.1 ug/dl (4.8-13.9); TOTAL PROTEIN 7.9 gm/dL (6.4-8.2)
== END | disposition home or self-care (01) ==
LOC: LAB 16:53
PROVIDERS: ATTEND Family Medicine
DX: I10 Essential (primary) hypertension (principal); E11.9 Type 2 diabetes mellitus without complications; R53.83 Other fatigue

== ENCOUNTER → 2020-10-07 | Outpatient (CLI) | payer MEDICARE ==
[2020-10-07 16:59] LABS: BASO % 0.3 % (0.0-1.0); EOS # 0.3 10*3/uL (0.0-0.4); EOS % 2.4 % (1.0-4.0); HEMATOCRIT 43.4 % (37.0-47.0); LYMPH # 3.1 10*3/uL (1.3-4.4); LYMPH % 26.7 % (27.0-41.0); MEAN CELL VOLUME 92.9 fl (81.0-99.0); MEAN CORPUSCULAR HGB 30.6 pg (27.0-31.0); MEAN CORPUSCULAR HGB CONC 32.9 g/dl (33.0-37.0); MEAN PLATELET VOLUME 9.9 fl (9.6-12.3); MONO # 0.6 10*3/uL (0.1-1.0); MONO % 4.9 % (3.0-9.0); NEUT # 7.6 10*3/uL (2.3-7.9); NEUT % 65.3 % (47.0-73.0); PLATELET COUNT AUTOMATED 247 10*3/uL (130-400); RED BLOOD COUNT 4.67 10*6/uL (4.10-5.10); RED CELL DISTRI WIDTH 14.4 % (0-14.5); WHITE BLOOD COUNT 11.6 10*3/uL (4.8-10.8)
[2020-10-07 17:28] LABS: ALBUMIN 3.3 gm/dl (3.1-4.5); ALKALINE PHOSPHATASE 87 U/L (45-117); BUN 8 mg/dl (7-24); CHLORIDE 101 mmol/L (98-107); POTASSIUM 3.8 mmol/L (3.5-5.1); SGOT/AST 10 IU/L (3-35); SGPT/ALT 14 U/L (12-78); SODIUM 136 mmol/L (136-145); THYROXINE (T4) TOTAL 8.6 ug/dl (4.8-13.9); TOTAL PROTEIN 7.7 gm/dL (6.4-8.2)
== END | disposition home or self-care (01) ==
LOC: LAB 16:25
PROVIDERS: ATTEND Family Medicine
DX: J44.9 Chronic obstructive pulmonary disease, unspecified (principal); E11.9 Type 2 diabetes mellitus without complications; R53.83 Other fatigue

== ENCOUNTER → 2021-04-05 | Outpatient (CLI) | payer MEDICARE ==
[~2021-04-05] MED LIST changes: +ELIQUIS5 M1 PO; +LEVOFLOXACIN750 M2 PO
== END | disposition home or self-care (01) ==
LOC: RAD 16:44
PROVIDERS: ATTEND Family Medicine
DX: M25.552 Pain in left hip (principal); M47.817 Spondylosis without myelopathy or radiculopathy, lumbosacral region

== ENCOUNTER → 2021-09-08 | Outpatient (CLI) | payer MEDICARE ==
[2021-09-08 17:30] LABS: BASO % 0.4 % (0.0-1.0); EOS # 0.5 10*3/uL (0.0-0.4); EOS % 4.8 % (1.0-4.0); HEMATOCRIT 40.6 % (37.0-47.0); LYMPH % 30.6 % (27.0-41.0); MEAN CELL VOLUME 91.9 fl (81.0-99.0); MEAN CORPUSCULAR HGB 30.3 pg (27.0-31.0); MEAN PLATELET VOLUME 9.8 fl (9.6-12.3); MONO # 0.5 10*3/uL (0.1-1.0); MONO % 5.4 % (3.0-9.0); NEUT # 5.8 10*3/uL (2.3-7.9); NEUT % 58.5 % (47.0-73.0); PLATELET COUNT AUTOMATED 254 10*3/uL (130-400); RED BLOOD COUNT 4.42 10*6/uL (4.10-5.10); RED CELL DISTRI WIDTH 14.4 % (0-14.5); WHITE BLOOD COUNT 9.8 10*3/uL (4.8-10.8)
[2021-09-08 17:45] LABS: ALKALINE PHOSPHATASE 84 U/L (45-117); BUN 13 mg/dl (7-24); CHLORIDE 106 mmol/L (98-107); CHOLESTEROL 219 mg/dL (<200); CREATININE 0.89 mg/dL (0.55-1.02); LDL CHOLESTEROL 138 mg/dL (9-159); POTASSIUM 3.9 mmol/L (3.5-5.1); SGOT/AST 21 IU/L (3-35); SGPT/ALT 18 U/L (12-78); SODIUM 139 mmol/L (136-145); THYROXINE (T4) TOTAL 7.3 ug/dl (4.8-13.9); TOTAL PROTEIN 7.4 gm/dL (6.4-8.2); TRIGLYCERIDES 236 mg/dl (<150)
== END | disposition home or self-care (01) ==
LOC: LAB 17:05
PROVIDERS: ATTEND Family Medicine
DX: I10 Essential (primary) hypertension (principal); E11.9 Type 2 diabetes mellitus without complications; I25.10 Atherosclerotic heart disease of native coronary artery without angina pectoris; E55.9 Vitamin D deficiency, unspecified

== ENCOUNTER 2021-10-02 16:49 | Emergency (ER) | payer MEDICARE | END 2021-10-02 22:41 | disposition home or self-care (01) | LOC: ED 16:49 | DX: S00.83XA Contusion of other part of head, initial encounter (principal); Z88.7 Allergy status to serum and vaccine; Z79.899 Other long term (current) drug therapy; Z79.82 Long term (current) use of aspirin; Z90.49 Acquired absence of other specified parts of digestive tract; Z98.890 Other specified postprocedural states; W18.39XA Other fall on same level, initial encounter; Y93.89 Activity, other specified; Y92.89 Other specified places as the place of occurrence of the external cause; Y99.8 Other external cause status ==

== ENCOUNTER → 2021-12-12 | Outpatient (CLI) | payer MEDICARE | END | disposition home or self-care (01) | LOC: RAD 15:07 | PROVIDERS: ATTEND Family Medicine | DX: M47.816 Spondylosis without myelopathy or radiculopathy, lumbar region (principal); M25.78 Osteophyte, vertebrae; I70.0 Atherosclerosis of aorta; M16.11 Unilateral primary osteoarthritis, right hip ==

== ENCOUNTER 2021-12-13 10:19 | Inpatient (IN) | payer MEDICARE ==
[~2021-12-13] VITALS: Ht 149.9 cm; Wt 93.5 kg
[2021-12-13 10:20] VITALS: BP 121/63
[2021-12-13 10:49] LABS: BASO # 0.1 10*3/uL (0.0-0.1); BASO % 0.5 % (0.0-1.0); EOS # 0.4 10*3/uL (0.0-0.4); EOS % 4.3 % (1.0-4.0); HEMATOCRIT 40.6 % (37.0-47.0); LYMPH # 3.8 10*3/uL (1.3-4.4); LYMPH % 37.2 % (27.0-41.0); MEAN CELL VOLUME 93.5 fl (81.0-99.0); MEAN CORPUSCULAR HGB 30.6 pg (27.0-31.0); MEAN CORPUSCULAR HGB CONC 32.8 g/dl (33.0-37.0); MEAN PLATELET VOLUME 9.8 fl (9.6-12.3); MONO # 0.7 10*3/uL (0.1-1.0); MONO % 6.5 % (3.0-9.0); NEUT # 5.1 10*3/uL (2.3-7.9); NEUT % 50.9 % (47.0-73.0); PLATELET COUNT AUTOMATED 255 10*3/uL (130-400); RED BLOOD COUNT 4.34 10*6/uL (4.10-5.10); WHITE BLOOD COUNT 10.1 10*3/uL (4.8-10.8)
[2021-12-13 11:02] LABS: ACT PARTIAL THROMBO TIME 29.3 SECONDS (20.0-32.1)
[2021-12-13 11:13] LABS: ALKALINE PHOSPHATASE 85 U/L (45-117); BUN 17 mg/dl (7-24); CHLORIDE 105 mmol/L (98-107); CREATININE 0.97 mg/dL (0.55-1.02); LIPASE 162 U/L (73-393); POTASSIUM 3.9 mmol/L (3.5-5.1); SGOT/AST 14 IU/L (3-35); SGPT/ALT 19 U/L (12-78); SODIUM 140 mmol/L (136-145); TOTAL PROTEIN 7.4 gm/dL (6.4-8.2)
[2021-12-13 12:16] VITALS: BP 162/51
[2021-12-13 18:07] VITALS: BP 134/58
[2021-12-13 22:28] VITALS: BP 141/47
[2021-12-14 01:02] VITALS: BP 165/86
[2021-12-14] MEDS ORDERED: GLIMEPIRIDE4 M1 PO (01:44)
[2021-12-14 05:57] LABS: BILIRUBIN Negative (Negative); BLOOD Negative (Negative); CLARITY Clear (Clear); COLOR Yellow (Yellow); GLUCOSE Negative (Negative); KETONE Negative (Negative); LEUKO ESTERASE 1+ (Negative); NITRITE Positive (Negative); PH 6.5 (4.5-8.0); UROBILINOGEN 0.2 E.U./dl (0.0-1.0)
[2021-12-14 06:08] LABS: BUN 14 mg/dl (7-24); CHLORIDE 105 mmol/L (98-107); CHOLESTEROL 241 mg/dL (<200); CREATININE 0.84 mg/dL (0.55-1.02); SGOT/AST 13 IU/L (3-35); SGPT/ALT 16 U/L (12-78); SODIUM 142 mmol/L (136-145)
[2021-12-14 06:09] LABS: BASO % 0.4 % (0.0-1.0); EOS # 0.4 10*3/uL (0.0-0.4); EOS % 4.5 % (1.0-4.0); LYMPH # 2.1 10*3/uL (1.3-4.4); LYMPH % 23.1 % (27.0-41.0); MEAN CELL VOLUME 94.6 fl (81.0-99.0); MEAN CORPUSCULAR HGB 29.9 pg (27.0-31.0); MEAN CORPUSCULAR HGB CONC 31.6 g/dl (33.0-37.0); MEAN PLATELET VOLUME 10.2 fl (9.6-12.3); MONO # 0.6 10*3/uL (0.1-1.0); NEUT # 5.9 10*3/uL (2.3-7.9); NEUT % 64.7 % (47.0-73.0); PLATELET COUNT AUTOMATED 235 10*3/uL (130-400); RED BLOOD COUNT 4.65 10*6/uL (4.10-5.10); RED CELL DISTRI WIDTH 14.3 % (0-14.5); WHITE BLOOD COUNT 9.1 10*3/uL (4.8-10.8)
[2021-12-14 06:15] LABS: ALKALINE PHOSPHATASE 83 U/L (45-117); FREE T4 0.98 ng/dl (0.76-1.46); LDL CHOLESTEROL 168 mg/dL (9-159); TOTAL PROTEIN 7.2 gm/dL (6.4-8.2); TRIGLYCERIDES 176 mg/dl (<150)
[2021-12-14 06:36] LABS: BACTERIA 3+
[2021-12-14 07:46] LABS: VITAMIN D, 25-HYDROXY 50.5 ng/mL (30-100)
[2021-12-14 08:00] VITALS: BP 96/73
[2021-12-14 12:00] VITALS: BP 127/50
[2021-12-14 16:00] VITALS: BP 137/55
== END 2021-12-14 16:53 | disposition home or self-care (01) | DRG 204 ==
LOC: ED 10:19 → EDHOLD 16:35 → 4E 16:35
PROVIDERS: Emergency Medicine; Student in an Organized Health Care Education/Training Program; ADMIT Internal Medicine; ATTEND Internal Medicine
DX: R06.00 Dyspnea, unspecified (principal); Z68.41 Body mass index [BMI] 40.0-44.9, adult; R06.01 Orthopnea; I25.10 Atherosclerotic heart disease of native coronary artery without angina pectoris; I45.10 Unspecified right bundle-branch block; G51.0 Bell's palsy; N18.9 Chronic kidney disease, unspecified; I12.9 Hypertensive chronic kidney disease with stage 1 through stage 4 chronic kidney disease, or unspecified chronic kidney disease; E11.22 Type 2 diabetes mellitus with diabetic chronic kidney disease; F41.1 Generalized anxiety disorder; E78.2 Mixed hyperlipidemia; E11.65 Type 2 diabetes mellitus with hyperglycemia; E66.01 Morbid (severe) obesity due to excess calories; Z88.7 Allergy status to serum and vaccine; Z95.5 Presence of coronary angioplasty implant and graft; Z90.49 Acquired absence of other specified parts of digestive tract; Z82.49 Family history of ischemic heart disease and other diseases of the circulatory system; Z86.16 Personal history of COVID-19; Z79.899 Other long term (current) drug therapy

== ENCOUNTER 2022-01-09 00:32 | Emergency (ER) | payer MEDICARE ==
[~2022-01-09] VITALS: Ht 152.4 cm; Wt 90.7 kg
[2022-01-09 00:49] VITALS: BP 137/56
[2022-01-09 01:25] LABS: BASO % 0.4 % (0.0-1.0); EOS # 0.2 10*3/uL (0.0-0.4); EOS % 2.2 % (1.0-4.0); HEMATOCRIT 38.5 % (37.0-47.0); LYMPH % 21.2 % (27.0-41.0); MEAN CELL VOLUME 92.5 fl (81.0-99.0); MEAN CORPUSCULAR HGB 31.3 pg (27.0-31.0); MEAN CORPUSCULAR HGB CONC 33.8 g/dl (33.0-37.0); MEAN PLATELET VOLUME 9.8 fl (9.6-12.3); MONO # 0.6 10*3/uL (0.1-1.0); MONO % 5.9 % (3.0-9.0); NEUT # 6.5 10*3/uL (2.3-7.9); PLATELET COUNT AUTOMATED 248 10*3/uL (130-400); RED BLOOD COUNT 4.16 10*6/uL (4.10-5.10); RED CELL DISTRI WIDTH 14.1 % (0-14.5); WHITE BLOOD COUNT 9.3 10*3/uL (4.8-10.8)
[2022-01-09 01:45] LABS: ALKALINE PHOSPHATASE 93 U/L (45-117); BUN 17 mg/dl (7-24); CHLORIDE 103 mmol/L (98-107); CREATININE 1.02 mg/dL (0.55-1.02); LIPASE 123 U/L (73-393); POTASSIUM 3.6 mmol/L (3.5-5.1); SGOT/AST 12 IU/L (3-35); SGPT/ALT 17 U/L (12-78); SODIUM 137 mmol/L (136-145); TOTAL PROTEIN 7.2 gm/dL (6.4-8.2)
[2022-01-09 02:08] LABS: BILIRUBIN Negative (Negative); BLOOD Negative (Negative); CLARITY Cloudy (Clear); COLOR Yellow (Yellow); GLUCOSE Negative (Negative); KETONE Trace (Negative); LEUKO ESTERASE 3+ (Negative); NITRITE Positive (Negative); PH 7.5 (4.5-8.0)
[2022-01-09 02:25] LABS: BACTERIA 4+; WBC 21-30 wbc/hpf (0-5)
[2022-01-09] MEDS ORDERED: ONDANSETRON4 MG SL (03:16)
[2022-01-09] MEDS ORDERED: CIPRO500 MG PO (03:16)
== END 2022-01-09 03:19 | disposition home or self-care (01) ==
LOC: ED 00:32
PROVIDERS: Emergency Medicine
DX: N39.0 Urinary tract infection, site not specified (principal); R11.0 Nausea; Z90.49 Acquired absence of other specified parts of digestive tract; Z79.899 Other long term (current) drug therapy; Z79.82 Long term (current) use of aspirin; Z88.7 Allergy status to serum and vaccine

== ENCOUNTER → 2022-01-25 | Outpatient (CLI) | payer MEDICARE ==
[~2022-01-25] MED LIST changes: +ONDANSETRON4 MG SL
[2022-01-25 15:05] LABS: BASO # 0.1 10*3/uL (0.0-0.1); BASO % 0.6 % (0.0-1.0); EOS # 0.3 10*3/uL (0.0-0.4); EOS % 3.8 % (1.0-4.0); HEMATOCRIT 45.9 % (37.0-47.0); LYMPH # 2.2 10*3/uL (1.3-4.4); LYMPH % 27.6 % (27.0-41.0); MEAN CELL VOLUME 92.7 fl (81.0-99.0); MEAN CORPUSCULAR HGB 30.3 pg (27.0-31.0); MEAN CORPUSCULAR HGB CONC 32.7 g/dl (33.0-37.0); MEAN PLATELET VOLUME 9.6 fl (9.6-12.3); MONO # 0.4 10*3/uL (0.1-1.0); MONO % 5.3 % (3.0-9.0); NEUT # 4.9 10*3/uL (2.3-7.9); NEUT % 62.6 % (47.0-73.0); PLATELET COUNT AUTOMATED 247 10*3/uL (130-400); RED BLOOD COUNT 4.95 10*6/uL (4.10-5.10); WHITE BLOOD COUNT 7.9 10*3/uL (4.8-10.8)
[2022-01-25 15:19] LABS: ALKALINE PHOSPHATASE 96 U/L (45-117); BUN 15 mg/dl (7-24); CHLORIDE 104 mmol/L (98-107); POTASSIUM 4.1 mmol/L (3.5-5.1); SGOT/AST 12 IU/L (3-35); SGPT/ALT 14 U/L (12-78); SODIUM 138 mmol/L (136-145); TOTAL PROTEIN 7.8 gm/dL (6.4-8.2)
== END | disposition home or self-care (01) ==
LOC: LAB 14:47
PROVIDERS: ATTEND Family Medicine
DX: E11.9 Type 2 diabetes mellitus without complications (principal)

== ENCOUNTER → 2022-05-30 | Outpatient (CLI) | payer MEDICARE ==
[2022-05-30 15:25] LABS: BASO # 0.1 10*3/uL (0.0-0.1); BASO % 0.5 % (0.0-1.0); EOS # 0.3 10*3/uL (0.0-0.4); EOS % 3.1 % (1.0-4.0); HEMATOCRIT 43.8 % (37.0-47.0); LYMPH # 2.9 10*3/uL (1.3-4.4); LYMPH % 29.1 % (27.0-41.0); MEAN CORPUSCULAR HGB CONC 32.6 g/dl (33.0-37.0); MEAN PLATELET VOLUME 9.7 fl (9.6-12.3); MONO # 0.4 10*3/uL (0.1-1.0); MONO % 4.4 % (3.0-9.0); NEUT # 6.2 10*3/uL (2.3-7.9); NEUT % 62.4 % (47.0-73.0); PLATELET COUNT AUTOMATED 241 10*3/uL (130-400); RED BLOOD COUNT 4.61 10*6/uL (4.10-5.10); RED CELL DISTRI WIDTH 13.9 % (0-14.5); WHITE BLOOD COUNT 9.9 10*3/uL (4.8-10.8)
[2022-05-30 15:39] LABS: POTASSIUM 3.9 mmol/L (3.4-5.1); TOTAL PROTEIN 7.4 gm/dL (6.0-8.0)
== END | disposition home or self-care (01) ==
LOC: LAB 15:03
PROVIDERS: ATTEND Family Medicine
DX: E11.9 Type 2 diabetes mellitus without complications (principal)

== ENCOUNTER → 2022-10-11 | Outpatient (CLI) | payer MEDICARE ==
[2022-10-11 16:52] LABS: BASO # 0.1 10*3/uL (0.0-0.1); BASO % 0.6 % (0.0-1.0); EOS # 0.5 10*3/uL (0.0-0.4); EOS % 4.7 % (1.0-4.0); HEMATOCRIT 45.7 % (37.0-47.0); LYMPH # 2.3 10*3/uL (1.3-4.4); LYMPH % 23.3 % (27.0-41.0); MEAN CELL VOLUME 95.2 fl (81.0-99.0); MEAN CORPUSCULAR HGB CONC 32.6 g/dl (33.0-37.0); MEAN PLATELET VOLUME 9.9 fl (9.6-12.3); MONO # 0.5 10*3/uL (0.1-1.0); MONO % 5.2 % (3.0-9.0); NEUT # 6.4 10*3/uL (2.3-7.9); NEUT % 65.9 % (47.0-73.0); PLATELET COUNT AUTOMATED 241 10*3/uL (130-400); RED CELL DISTRI WIDTH 13.9 % (0-14.5); WHITE BLOOD COUNT 9.7 10*3/uL (4.8-10.8)
[2022-10-11 17:18] LABS: ALKALINE PHOSPHATASE 80 U/L (46-116); BUN 15 mg/dl (9-23); CHLORIDE 99 mmol/L (98-107); POTASSIUM 4.2 mmol/L (3.4-5.1); SGPT/ALT 13 U/L (10-49); TOTAL PROTEIN 7.4 gm/dL (6.0-8.0)
== END | disposition home or self-care (01) ==
LOC: LAB 16:30
PROVIDERS: ATTEND Family Medicine
DX: R91.8 Other nonspecific abnormal finding of lung field (principal); E11.9 Type 2 diabetes mellitus without complications; J47.9 Bronchiectasis, uncomplicated; I51.7 Cardiomegaly

== ENCOUNTER → 2022-11-06 | Outpatient (CLI) | payer MEDICARE ==
[~2022-11-06] MED LIST changes: +LEVEMIR100 UNIT/1 SC; +PLAVIX75 M1 PO; +TOPROL XL25 MG PO
== END | disposition home or self-care (01) ==
LOC: CARD 00:52
PROVIDERS: ATTEND Internal Medicine Cardiovascular Disease
DX: R07.9 Chest pain, unspecified (principal)

== ENCOUNTER 2022-11-08 17:00 | Emergency (ER) | payer MEDICARE ==
[~2022-11-08] VITALS: Ht 157.4 cm; Wt 98.0 kg
[~2022-11-08 17:00] MED LIST changes: -PLAVIX75 M1 PO
[2022-11-08 18:00] LABS: BILIRUBIN Negative (Negative); BLOOD Negative (Negative); CLARITY Clear (Clear); COLOR Yellow (Yellow); GLUCOSE 3+ (Negative); KETONE Negative (Negative); LEUKO ESTERASE Negative (Negative); NITRITE Negative (Negative); SPECIFIC GRAVITY 1.025 (1.001-1.030); UROBILINOGEN 0.2 E.U./dl (0.0-1.0)
[2022-11-08 18:08] LABS: WBC 0-2 wbc/hpf (0-5)
[2022-11-08 18:21] LABS: BASO % 0.5 % (0.0-1.0); EOS # 0.3 10*3/uL (0.0-0.4); EOS % 3.9 % (1.0-4.0); LYMPH # 2.5 10*3/uL (1.3-4.4); LYMPH % 29.5 % (27.0-41.0); MEAN CELL VOLUME 95.7 fl (81.0-99.0); MEAN CORPUSCULAR HGB CONC 32.4 g/dl (33.0-37.0); MEAN PLATELET VOLUME 9.7 fl (9.6-12.3); MONO # 0.5 10*3/uL (0.1-1.0); MONO % 6.2 % (3.0-9.0); NEUT # 5.1 10*3/uL (2.3-7.9); NEUT % 59.7 % (47.0-73.0); PLATELET COUNT AUTOMATED 210 10*3/uL (130-400); RED BLOOD COUNT 4.39 10*6/uL (4.10-5.10); RED CELL DISTRI WIDTH 13.8 % (0-14.5); WHITE BLOOD COUNT 8.6 10*3/uL (4.8-10.8)
[2022-11-08 18:32] LABS: ACT PARTIAL THROMBO TIME 28.3 SECONDS (20.0-32.1)
[2022-11-08] MEDS ORDERED: PLAVIX75 M1 PO (18:39)
[2022-11-08 18:43] LABS: ALKALINE PHOSPHATASE 73 U/L (46-116); BUN 14 mg/dl (9-23); CHLORIDE 100 mmol/L (98-107); LIPASE 37 U/L (12-53); POTASSIUM 4.3 mmol/L (3.4-5.1); SGPT/ALT 9 U/L (10-49)
== END 2022-11-08 21:04 | disposition home or self-care (01) ==
LOC: ED 17:00
PROVIDERS: Physician Assistant Medical
DX: R10.31 Right lower quadrant pain (principal); R09.3 Abnormal sputum; R06.02 Shortness of breath; Z88.7 Allergy status to serum and vaccine; Z79.82 Long term (current) use of aspirin; Z79.899 Other long term (current) drug therapy; Z79.4 Long term (current) use of insulin; Z90.49 Acquired absence of other specified parts of digestive tract; Z95.5 Presence of coronary angioplasty implant and graft

== ENCOUNTER 2023-04-20 16:43 | Emergency (ER) | payer MEDICARE ==
[~2023-04-20] VITALS: Ht 149.8 cm; Wt 95.3 kg
[~2023-04-20 16:43] MED LIST changes: +PLAVIX75 M1 PO
[2023-04-20 16:54] VITALS: BP 155/55
[2023-04-20 18:41] LABS: BILIRUBIN Negative (Negative); BLOOD 2+ (Negative); CLARITY Cloudy (Clear); COLOR Yellow (Yellow); GLUCOSE 2+ (Negative); KETONE Negative (Negative); LEUKO ESTERASE Trace (Negative); NITRITE Negative (Negative); PH 6.5 (4.5-8.0); SPECIFIC GRAVITY 1.015 (1.001-1.030); UROBILINOGEN 0.2 E.U./dl (0.0-1.0)
[2023-04-20 18:53] LABS: BACTERIA 1+
[2023-04-20] MEDS ORDERED: CYCLOBENZAPRINE10 MG PO (20:20)
== END 2023-04-20 20:36 | disposition home or self-care (01) ==
LOC: ED 16:43
PROVIDERS: Nurse Practitioner Family
DX: M54.16 Radiculopathy, lumbar region (principal); M25.551 Pain in right hip; M25.552 Pain in left hip; I25.10 Atherosclerotic heart disease of native coronary artery without angina pectoris; F32.A Depression, unspecified; I10 Essential (primary) hypertension; E11.9 Type 2 diabetes mellitus without complications; Z88.7 Allergy status to serum and vaccine; Z79.82 Long term (current) use of aspirin; Z79.899 Other long term (current) drug therapy; Z79.4 Long term (current) use of insulin; Z90.49 Acquired absence of other specified parts of digestive tract; Z95.5 Presence of coronary angioplasty implant and graft

== ENCOUNTER → 2023-06-04 | Outpatient (CLI) | payer MEDICARE ==
[~2023-06-04] MED LIST changes: +CYCLOBENZAPRINE10 MG PO
[2023-06-04 17:31] LABS: BASO % 0.4 % (0.0-1.0); EOS # 0.5 10*3/uL (0.0-0.4); EOS % 5.1 % (1.0-4.0); HEMATOCRIT 44.6 % (37.0-47.0); LYMPH # 2.9 10*3/uL (1.3-4.4); LYMPH % 30.5 % (27.0-41.0); MEAN CELL VOLUME 94.9 fl (81.0-99.0); MEAN CORPUSCULAR HGB 30.6 pg (27.0-31.0); MEAN CORPUSCULAR HGB CONC 32.3 g/dl (33.0-37.0); MEAN PLATELET VOLUME 9.9 fl (9.6-12.3); MONO # 0.6 10*3/uL (0.1-1.0); NEUT # 5.4 10*3/uL (2.3-7.9); NEUT % 57.6 % (47.0-73.0); PLATELET COUNT AUTOMATED 253 10*3/uL (130-400); RED CELL DISTRI WIDTH 13.2 % (0-14.5); WHITE BLOOD COUNT 9.3 10*3/uL (4.8-10.8)
[2023-06-04 17:55] LABS: ALKALINE PHOSPHATASE 90 U/L (46-116); BUN 13 mg/dl (9-23); CHLORIDE 103 mmol/L (98-107); POTASSIUM 3.9 mmol/L (3.4-5.1); SGPT/ALT 9 U/L (5-49); TOTAL PROTEIN 7.5 gm/dL (6.0-8.0)
[2023-06-04 19:25] LABS: BILIRUBIN Negative (Negative); BLOOD 1+ (Negative); CLARITY Clear (Clear); COLOR Yellow (Yellow); GLUCOSE Negative (Negative); KETONE Negative (Negative); LEUKO ESTERASE 2+ (Negative); NITRITE Negative (Negative); SPECIFIC GRAVITY 1.015 (1.001-1.030)
[2023-06-04 19:44] LABS: BACTERIA 1+; EPITHELIAL CELLS 16-20; WBC 21-30 wbc/hpf (0-5)
== END | disposition home or self-care (01) ==
LOC: LAB 16:57
PROVIDERS: ATTEND Family Medicine
DX: E11.9 Type 2 diabetes mellitus without complications (principal); Z90.49 Acquired absence of other specified parts of digestive tract; R10.9 Unspecified abdominal pain; R33.9 Retention of urine, unspecified

== ENCOUNTER 2023-08-20 20:39 | Emergency (ER) | payer MEDICARE ==
[~2023-08-20] VITALS: Ht 149.8 cm; Wt 97.1 kg
[~2023-08-20 20:39] MED LIST changes: +LASIX40 MG PO
[2023-08-20 21:14] VITALS: BP 146/67
[2023-08-20] MEDS ORDERED: Dexamethasone Sodium Phospha 20 MG/5 ML VIAL IM ONE (23:25)
[2023-08-20] MEDS ORDERED: Ketorolac Tromethamine 15 MG/ML VIAL IM ONE (23:25)
[2023-08-21] MEDS ORDERED: PREDNISONE50 MG PO (00:41)
[2023-08-21] MEDS ORDERED: CYCLOBENZAPRINE5 M3 PO (00:41)
== END 2023-08-21 01:56 | disposition home or self-care (01) ==
LOC: ED 20:39
DX: M54.50 Low back pain, unspecified (principal); M62.830 Muscle spasm of back; Z88.7 Allergy status to serum and vaccine; Z79.899 Other long term (current) drug therapy; Z79.82 Long term (current) use of aspirin; Z79.4 Long term (current) use of insulin; Z90.49 Acquired absence of other specified parts of digestive tract; Z95.5 Presence of coronary angioplasty implant and graft

== ENCOUNTER → 2023-08-23 | Outpatient (CLI) | payer MEDICARE ==
[~2023-08-23] MED LIST changes: +CYCLOBENZAPRINE5 M3 PO; +PREDNISONE50 MG PO
== END | disposition home or self-care (01) ==
LOC: US 08-07 13:00
PROVIDERS: ATTEND Urology
DX: R32 Unspecified urinary incontinence (principal)

== ENCOUNTER → 2023-09-13 | Outpatient (CLI) | payer MEDICARE ==
[2023-09-13 14:32] LABS: BASO % 0.4 % (0.0-1.0); EOS # 0.2 10*3/uL (0.0-0.4); EOS % 1.6 % (1.0-4.0); HEMATOCRIT 43.7 % (37.0-47.0); LYMPH # 2.9 10*3/uL (1.3-4.4); LYMPH % 28.3 % (27.0-41.0); MEAN CELL VOLUME 91.8 fl (81.0-99.0); MEAN CORPUSCULAR HGB 31.1 pg (27.0-31.0); MEAN CORPUSCULAR HGB CONC 33.9 g/dl (33.0-37.0); MONO # 0.5 10*3/uL (0.1-1.0); NEUT # 6.6 10*3/uL (2.3-7.9); NEUT % 64.3 % (47.0-73.0); PLATELET COUNT AUTOMATED 256 10*3/uL (130-400); RED BLOOD COUNT 4.76 10*6/uL (4.10-5.10); RED CELL DISTRI WIDTH 13.7 % (0-14.5); WHITE BLOOD COUNT 10.3 10*3/uL (4.8-10.8)
[2023-09-13 14:53] LABS: ALKALINE PHOSPHATASE 92 U/L (46-116); BUN 19 mg/dl (9-23); CHLORIDE 105 mmol/L (98-107); POTASSIUM 4.3 mmol/L (3.4-5.1); SGPT/ALT 9 U/L (5-49); TOTAL PROTEIN 7.5 gm/dL (6.0-8.0)
== END ==
LOC: LAB 14:18
PROVIDERS: ATTEND Family Medicine
DX: E11.9 Type 2 diabetes mellitus without complications (principal)

== ENCOUNTER → 2023-12-27 | Outpatient (CLI) | payer MEDICARE ==
[2023-12-27 17:07] LABS: FREE T4 1.16 ng/dl (0.89-1.76); TOTAL PROTEIN 7.5 gm/dL (6.0-8.0)
== END | disposition home or self-care (01) ==
LOC: LAB 15:47
PROVIDERS: ATTEND Internal Medicine
DX: E11.65 Type 2 diabetes mellitus with hyperglycemia (principal); E55.9 Vitamin D deficiency, unspecified; E78.5 Hyperlipidemia, unspecified; E04.9 Nontoxic goiter, unspecified

== ENCOUNTER → 2024-01-07 | Outpatient (CLI) | payer MEDICARE ==
[2024-01-07 16:40] LABS: POTASSIUM 3.6 mmol/L (3.4-5.1)
== END | disposition home or self-care (01) ==
LOC: LAB 15:22
PROVIDERS: ATTEND Family Medicine
DX: J44.9 Chronic obstructive pulmonary disease, unspecified (principal); E11.9 Type 2 diabetes mellitus without complications; R60.0 Localized edema

== ENCOUNTER → 2024-07-22 | Outpatient (CLI) | payer MEDICARE ==
[~2024-07-22] MED LIST changes: +AMIODARONE HYD200 MG PO; +AMLODIPINE BESYL5 MG PO; +DOXYCYCLINE MO100 MG PO; +FESOTERODINE PO; +HUMALOG 751 UNIT/0.0 SC; +LANTUS SOL100 UNIT/1 SC; +Lopressor25 MG PO; +POTASSIUM CHLO20 ME3 PO
== END | disposition home or self-care (01) ==
LOC: US 10:30
PROVIDERS: ATTEND Urology
DX: N28.89 Other specified disorders of kidney and ureter (principal); N28.1 Cyst of kidney, acquired; R35.0 Frequency of micturition

== ENCOUNTER 2024-08-28 17:19 | Inpatient (IN) | payer MEDICARE ==
[~2024-08-28] VITALS: Ht 152.4 cm; Wt 95.4 kg
[2024-08-28 17:34] VITALS: BP 150/82
[2024-08-28] MEDS ORDERED: Acetaminophen/Hydrocodone 5 MG/325 MG TABLET PO ONE (17:45)
[2024-08-28 18:11] LABS: BASO # 0.1 10*3/uL (0.0-0.1); BASO % 0.6 % (0.0-1.0); EOS # 0.5 10*3/uL (0.0-0.4); EOS % 4.5 % (1.0-4.0); HEMATOCRIT 42.4 % (37.0-47.0); MEAN CELL VOLUME 90.8 fl (81.0-99.0); MEAN CORPUSCULAR HGB 30.4 pg (27.0-31.0); MEAN CORPUSCULAR HGB CONC 33.5 g/dl (33.0-37.0); MEAN PLATELET VOLUME 10.2 fl (9.6-12.3); MONO # 0.5 10*3/uL (0.1-1.0); MONO % 5.2 % (3.0-9.0); NEUT # 6.2 10*3/uL (2.3-7.9); NEUT % 62.4 % (47.0-73.0); PLATELET COUNT AUTOMATED 270 10*3/uL (130-400); RED BLOOD COUNT 4.67 10*6/uL (4.10-5.10); RED CELL DISTRI WIDTH 13.6 % (0-14.5)
[2024-08-28 18:29] LABS: POTASSIUM 4.5 mmol/L (3.4-5.1)
[2024-08-28 19:38] LABS: BILIRUBIN Negative (Negative); BLOOD 2+ (Negative); CLARITY Cloudy (Clear); COLOR Yellow (Yellow); GLUCOSE Negative (Negative); KETONE Trace (Negative); LEUKO ESTERASE 1+ (Negative); NITRITE Negative (Negative); PH 5.5 (4.5-8.0)
[2024-08-28 19:48] LABS: BACTERIA 1+
[2024-08-28] MEDS ORDERED: Ondansetron Hydrochloride 4 MG/2 ML VIAL IV PRN (20:20)
[2024-08-28] MEDS ORDERED: DEXTROSE 50% 25 GM/50 ML VIAL IV PRN (20:20)
[2024-08-28] MEDS ORDERED: MORPHINE Sulfate 2 MG/ML SYR IV PRN (20:20)
[2024-08-28] MEDS ORDERED: Acetaminophen/Hydrocodone 5 MG/325 MG TABLET PO PRN (20:20)
[2024-08-28] MEDS ORDERED: Insulin Glargine, Recombinan 1 UNIT/0.01 ML SC ONE (20:25)
[2024-08-28] MEDS ORDERED: methylPREDNISolone sod succ 40 MG IV ONE (20:25)
[2024-08-28] MEDS ORDERED: methylPREDNISolone sod succ 40 MG VIAL IV ONE (20:35)
[2024-08-28] MEDS ORDERED: SODIUM CHLORIDE 0.9% 1,000 ML IV ONE (20:40)
[2024-08-28] MEDS ORDERED: HEPARIN SODIUM 5,000 UNIT/ML VIAL SC SCH (22:00)
[2024-08-28] MEDS ORDERED: INSULIN LISPRO 1 UNIT/0.01 ML SQ SCH (22:00)
[2024-08-29 02:20] VITALS: BP 131/49
[2024-08-29 06:31] LABS: BASO % 0.2 % (0.0-1.0); HEMATOCRIT 42.4 % (37.0-47.0); MEAN CELL VOLUME 91.6 fl (81.0-99.0); MEAN CORPUSCULAR HGB 30.2 pg (27.0-31.0); MEAN PLATELET VOLUME 10.8 fl (9.6-12.3); MONO # 0.1 10*3/uL (0.1-1.0); MONO % 0.7 % (3.0-9.0); NEUT # 7.1 10*3/uL (2.3-7.9); NEUT % 84.3 % (47.0-73.0); PLATELET COUNT AUTOMATED 255 10*3/uL (130-400); RED BLOOD COUNT 4.63 10*6/uL (4.10-5.10); RED CELL DISTRI WIDTH 13.5 % (0-14.5); WHITE BLOOD COUNT 8.4 10*3/uL (4.8-10.8)
[2024-08-29 07:21] LABS: VITAMIN D, 25-HYDROXY 61.8 ng/mL (30-100)
[2024-08-29 07:22] LABS: FREE T4 1.09 ng/dl (0.89-1.76); POTASSIUM 4.7 mmol/L (3.4-5.1); TOTAL PROTEIN 7.6 gm/dL (6.0-8.0)
[2024-08-29 08:00] VITALS: BP 157/55
[2024-08-29] MEDS ORDERED: Cyclobenzaprine Hydrochlorid 10 MG TAB PO SCH (10:00)
[2024-08-29] MEDS ORDERED: METOPROLOL SUCCINATE XR 25 MG TAB PO SCH (10:00)
[2024-08-29] MEDS ORDERED: PARoxetine Hydrochloride 10 MG TAB PO SCH (10:00)
[2024-08-29] MEDS ORDERED: FESOTERODINE 4 MG PO SCH (10:00)
[2024-08-29] MEDS ORDERED: Insulin Glargine, Recombinan 1 UNIT/0.01 ML SC SCH ×2 (10:00→22:00)
[2024-08-29] MEDS ORDERED: predniSONE 10 MG TAB PO SCH (10:00)
[2024-08-29] MEDS ORDERED: Amiodarone Hydrochloride 200 MG TAB PO SCH (10:00)
[2024-08-29] MEDS ORDERED: cefTRIAXone Sodium 1 GM in SYRINGE INFUSION 10 ML IV SCH (10:00)
[2024-08-29] MEDS ORDERED: amLODIPine besylate 5 MG TAB PO SCH (10:00)
[2024-08-29] MEDS ORDERED: ASPIRIN, CHEWABLE 81 MG TAB PO SCH (10:00)
[2024-08-29] MEDS ORDERED: Oxybutynin Chloride 5 MG TAB PO SCH (10:00)
[2024-08-29] MEDS ORDERED: ISOSORBIDE MONONITRATE 30 MG TAB PO SCH (10:00)
[2024-08-29] MEDS ORDERED: Clopidogrel Hydrogen Sulfate 75 MG TAB PO SCH (10:00)
[2024-08-29] MEDS ORDERED: Cholecalciferol 5,000 IU CAP (125 MCG) PO SCH (10:00)
[2024-08-29] MEDS ORDERED: Polyethylene Glycol 3350 17 GM PACKET PO PRN (11:30)
[2024-08-29 12:00] VITALS: BP 132/68
[2024-08-29 16:00] VITALS: BP 104/56
[2024-08-29] MEDS ORDERED: PANTOPRAZOLE SO20 MG PO (19:53)
[2024-08-29] MEDS ORDERED: SENNA8.6 MG PO (19:53)
[2024-08-29] MEDS ORDERED: ELIQUIS5 M1 PO (19:56)
[2024-08-29] MEDS ORDERED: VITAMIN D3250 MC2 PO (19:57)
[2024-08-29] MEDS ORDERED: FUROSEMIDE40 MG PO (19:58)
[2024-08-29 20:00] VITALS: BP 140/50
[2024-08-29] MEDS ORDERED: NORVASC5 MG PO (20:20)
[2024-08-29] MEDS ORDERED: LANTUS100 UNIT/1 SQ (20:20)
[2024-08-29] MEDS ORDERED: ZINC50 M4 PO (20:21)
[2024-08-29] MEDS ORDERED: APIXABAN 5 MG TAB PO SCH (22:00)
[2024-08-30] VITALS: BP 136/41
[2024-08-30 06:23] LABS: POTASSIUM 4.8 mmol/L (3.4-5.1)
[2024-08-30 08:00] VITALS: BP 156/60
[2024-08-30] MEDS ORDERED: APIXABAN 2.5 MG TABLET PO SCH (10:00)
[2024-08-30] MEDS ORDERED: amLODIPine besylate 5 MG TAB PO SCH (10:00)
[2024-08-30] MEDS ORDERED: FUROSEMIDE 40 MG TAB PO SCH (10:00)
[2024-08-30 12:00] VITALS: BP 160/64
[2024-08-30 16:00] VITALS: BP 147/71
[2024-08-30 20:00] VITALS: BP 146/88
[2024-08-31] VITALS: BP 116/88; BP 146/63
[2024-08-31 08:00] VITALS: BP 145/62
[2024-08-31 12:00] VITALS: BP 149/44
[2024-08-31 16:00] VITALS: BP 149/62
[2024-08-31 20:00] VITALS: BP 148/70
[2024-09-01] VITALS: BP 125/62
[2024-09-01 08:00] VITALS: BP 148/54
[2024-09-01] MEDS ORDERED: ELIQUIS2.5 M1 PO (11:47)
[2024-09-01] MEDS ORDERED: PREDNISONE10 MG PO (11:47)
[2024-09-01 12:00] VITALS: BP 132/69
[2024-09-01 16:00] VITALS: BP 129/73
== END 2024-09-01 17:55 | disposition home or self-care (01) | DRG 552 ==
LOC: ED 17:19 → EDHOLD 19:08 → 4E 19:08 → EDHOLD 20:25 → 5E 08-29 01:55 → 4E 08-29 18:35
PROVIDERS: Nurse Practitioner Family; Student in an Organized Health Care Education/Training Program; ADMIT Internal Medicine; ATTEND Internal Medicine
DX: M51.16 Intervertebral disc disorders with radiculopathy, lumbar region (principal); N30.01 Acute cystitis with hematuria; E87.1 Hypo-osmolality and hyponatremia; Z68.44 Body mass index [BMI] 60.0-69.9, adult; N17.9 Acute kidney failure, unspecified; N18.32 Chronic kidney disease, stage 3b; E11.65 Type 2 diabetes mellitus with hyperglycemia; E11.22 Type 2 diabetes mellitus with diabetic chronic kidney disease; I25.10 Atherosclerotic heart disease of native coronary artery without angina pectoris; K21.9 Gastro-esophageal reflux disease without esophagitis; E78.2 Mixed hyperlipidemia; I12.9 Hypertensive chronic kidney disease with stage 1 through stage 4 chronic kidney disease, or unspecified chronic kidney disease; E66.813 Obesity, class 3; M48.061 Spinal stenosis, lumbar region without neurogenic claudication; Z79.4 Long term (current) use of insulin; Z90.49 Acquired absence of other specified parts of digestive tract; Z90.710 Acquired absence of both cervix and uterus; Z88.7 Allergy status to serum and vaccine; Z79.82 Long term (current) use of aspirin; Z79.899 Other long term (current) drug therapy